=== PATIENT | male | born 1930 | race Caucasian/White ===

== ENCOUNTER 2016-11-01 23:45 | Inpatient (IN) | payer OTHER, MEDICARE ==
[~2016-11-01] VITALS: Ht 167.6 cm; Wt 68.6 kg
[~2016-11-01 23:45] MED LIST: ASPI81TA11 PO; ATOR1TAB18 PO; ENAL20TA PO; METO25TA3 PO; OMEP20CA2; SPIR25TA PO; SULI200T PO
[2016-11-01 23:47] VITALS: BP 167/66; PULSE 98; RESP 20; TEMP 98; O2SAT 92
[2016-11-02] VITALS (20 sets, daily range): BP systolic 103–154; BP diastolic 52–64; PULSE 58–95; RESP 16–18; TEMP 97.5–97.8; O2SAT 93–99
[2016-11-02 00:39] LABS: AUTOMATED NEUTROPHIL # 4.8 TH/MM3 (1.8-7.7); BASOPHIL % 0.3 % (0.0-2.0); EOSINOPHIL # 0.1 TH/MM3 (0-0.4); EOSINOPHIL % 1.3 % (0.0-4.0); HEMATOCRIT 41.5 % (39.0-51.0); HEMO FLAGS DIFF FINAL; LYMPH % 18.9 % (9.0-44.0); LYMPHOCYTE # 1.3 TH/MM3 (1.0-4.8); MEAN CELL VOLUME 87.4 FL (80.0-100.0); MEAN CORPUSCULAR HEMOGLOBIN 29.3 PG (27.0-34.0); MEAN CORPUSCULAR HGB CONC 33.5 % (32.0-36.0); NEUT % 71.5 % (16.0-70.0); PLATELET COUNT 141 TH/MM3 (150-450); RED BLOOD COUNT 4.75 MIL/MM3 (4.50-5.90); RED CELL DISTRIBUTION WIDTH 14.3 % (11.6-17.2); WHITE BLOOD COUNT 6.7 TH/MM3 (4.0-11.0)
[2016-11-02 00:48] LABS: APTT (PATIENT) 27.3 SEC (24.3-30.1); PROTHROMBIN TIME - PATIENT 11.2 SEC (9.8-11.6)
--- NOTE | 2016-11-02 01:15 | PD ---
HPI Chief Complaint: Respiratory Symptoms Time Seen by Provider: 00:24 Travel History International Travel<30 days: No Contact w/Intl Traveler<30days: No Traveled to known affect area: No History of Present Illness HPI 86 years old male complains of shortness of breath. Patient has history of CHF and aortic valve disease. Patient has been seen by factory worker Dr. Lenz and cardiovascular surgeon Dr. Donohue. Patient has cardiac catheter and open heart surgery pending. Patient states that he has increasing shortness breath for the past month. Patient also complains of dyspnea on exertion. Patient has been taking Spironolactone and Lasix. Patient noticed increasing lower extremity swelling recently. Patient denies any chest pain. Patient has history of CAD, hyperlipidemia, hypertension and leaky heart valve. Patient had 2-D echocardiogram done recently which shows systolic CHF with ejection fraction of 30%. PFSH Past Medical History Hx Anticoagulant Therapy: Yes Arthritis: Yes Cardiac Catheterization: Yes Cardiovascular Problems: Yes (STENTS, LEAKY VALVES, CHF ) High Cholesterol: Yes Diminished Hearing: No Hypertension: Yes Tetanus Vaccination: < 5 Years Influenza Vaccination: Yes Past Surgical History Cardiac Surgery: Yes Coronary Stent: Yes (x4) Social History Alcohol Use: Yes (BEER OCC) Tobacco Use: No (quit "50 years ago" stated 10/02/16) Substance Use: No Allergies-Medications (Allergen,Severity, Reaction): Coded Allergies: No Known Allergies (Verified , 10/19/16) Reported Meds & Prescriptions Reported Meds & Active Scripts Active Metoprolol Tartrate 25 Mg Tab 12.5 Mg PO Q12HR Spironolactone 25 Mg Tab 25 Mg PO DAILY Aspirin EC (Aspirin) 81 Mg Tabdr 81 Mg PO DAILY Reported Enalapril (Enalapril Maleate) 20 Mg Tab 20 Mg PO BID Atorvastatin (Atorvastatin Calcium) 80 Mg Tab 80 Mg PO HS Omeprazole 20 Mg Cap DAILY Sulindac 200 Mg Tab 200 Mg PO BID Review of Systems General / Constitutional: No: Fever Eyes: No: Visual changes HENT: No: Headaches Cardiovascular: No: Chest Pain or Discomfort Respiratory: Positive: Shortness of Breath Gastrointestinal: No: Abdominal Pain Genitourinary: No: Dysuria Musculoskeletal: No: Pain Skin: No Rash Neurologic: No: Weakness Psychiatric: No: Depression Endocrine: No: Polydipsia Hematologic/Lymphatic: No: Easy Bruising Physical Exam Narrative GENERAL: Well-nourished, well-developed patient. SKIN: Warm and dry. HEAD: Normocephalic. EYES: No scleral icterus. No injection or drainage. NECK: Supple, trachea midline. No JVD or lymphadenopathy. CARDIOVASCULAR: Regular rate and rhythm without murmurs, gallops, or rubs. RESPIRATORY: Breath sounds equal bilaterally. No accessory muscle use. GASTROINTESTINAL: Abdomen soft, non-tender, nondistended. MUSCULOSKELETAL: No cyanosis, or edema. BACK: Nontender without obvious deformity. No CVA tenderness. Neurologic exam normal. Data Data Last Documented VS Vital Signs Date Time Temp Pulse Resp B/P Pulse Ox O2 Delivery O2 Flow Rate FiO2 11/02/16 00:17 96 Room Air 11/01/16 23:47 98.0 98 20 167/66 Orders Electrocardiogram (11/02/16 00:03) Complete Blood Count With Diff (11/02/16 00:03) Basic Metabolic Panel (Bmp) (11/02/16 00:03) Ckmb (Isoenzyme) Profile (11/02/16 00:03) Troponin I (11/02/16 00:03) Chest, Single Ap (11/02/16 00:03) Iv Access Insert/Monitor (11/02/16 00:03) Ecg Monitoring (11/02/16 00:03) Oxygen Administration (11/02/16 00:03) Act Partial Throm Time (Ptt) (11/02/16 00:10) Prothrombin Time / Inr (Pt) (11/02/16 00:10) B-Type Natriuretic Peptide (11/02/16 00:12) Furosemide Inj (Lasix Inj) (11/02/16 02:00) Labs Laboratory Tests Test 11/02/16 00:20 White Blood Count 6.7 TH/MM3 Red Blood Count 4.75 MIL/MM3 Hemoglobin 13.9 GM/DL Hematocrit 41.5 % Mean Corpuscular Volume 87.4 FL Mean Corpuscular Hemoglobin 29.3 PG Mean Corpuscular Hemoglobin 33.5 % Concent Red Cell Distribution Width 14.3 % Platelet Count 141 TH/MM3 Mean Platelet Volume 10.5 FL Neutrophils (%) (Auto) 71.5 % Lymphocytes (%) (Auto) 18.9 % Monocytes (%) (Auto) 8.0 % Eosinophils (%) (Auto) 1.3 % Basophils (%) (Auto) 0.3 % Neutrophils # (Auto) 4.8 TH/MM3 Lymphocytes # (Auto) 1.3 TH/MM3 Monocytes # (Auto) 0.5 TH/MM3 Eosinophils # (Auto) 0.1 TH/MM3 Basophils # (Auto) 0.0 TH/MM3 CBC Comment DIFF FINAL Differential Comment Prothrombin Time 11.2 SEC Prothromb Time International 1.0 RATIO Ratio Activated Partial 27.3 SEC Thromboplast Time Sodium Level 144 MEQ/L Potassium Level 4.0 MEQ/L Chloride Level 110 MEQ/L Carbon Dioxide Level 25.0 MEQ/L Anion Gap 9 MEQ/L Blood Urea Nitrogen 25 MG/DL Creatinine 1.15 MG/DL Estimat Glomerular Filtration 60 ML/MIN Rate Random Glucose 111 MG/DL Calcium Level 9.3 MG/DL Total Creatine Kinase 55 U/L Troponin I 0.14 NG/ML B-Type Natriuretic Peptide 897 PG/ML MDM Medical Decision Making Medical Screen Exam Complete: Yes Emergency Medical Condition: Yes Interpretation(s) 1:43 AM. EKG shows sinus rhythm with occasional PVCs. Right bundle-branch block. Differential Diagnosis Differential diagnosis including acute exacerbation of CHF, pneumonia, PE, pneumothorax, FL. Narrative Course 1:41 AM. Chest x-ray shows atelectasis. CBC within normal limit. BUN 25. Creatinine 1.15. BNP 897. Troponin 0.14. Diagnosis Primary Impression: Acute exacerbation of CHF (congestive heart failure) Qualified Code: I50.9 - Acute on chronic congestive heart failure, unspecified congestive heart failure type Additional Impression: Elevated troponin Georges Corcoran MD Nov 02, 2016 01:15
--- NOTE | 2016-11-02 01:21 | RADRPT ---
EXAM DATE/TIME: 11/02/2016 00:29 [facility] COMPARISON: CHEST SINGLE AP, October 19, 2016, 10:28. INDICATIONS : Chest pain. Shortness of breath. MEDICAL HISTORY : CHF. SURGICAL HISTORY : None. ENCOUNTER: Initial ACUITY: 1 month PAIN SCORE: 2/10 LOCATION: Bilateral chest FINDINGS: A single view of the chest demonstrates the lungs to be symmetrically aerated without evidence of mas s, infiltrate or effusion. The cardiomediastinal contours are unremarkable. Osseous structures are intact. CONCLUSION: Mild indistinctness of both hemidiaphragms suggesting basilar atelectasis. John Menjivar MD on November 02, 2016 at 1:20 Board Certified Radiologist. This report was verified electronically.
[2016-11-02] MEDS ORDERED: FUROSEMIDE 40 MG/4 ML VIAL IV PUSH ONE (02:00)
[2016-11-02] MEDS ORDERED: ACETAMINOPHEN/HYDROcodone 325 MG/5 MG TAB PO PRN (02:30)
[2016-11-02] MEDS ORDERED: ONDANSETRON HCL 4 MG/2 ML VIAL IVP PRN (02:30)
[2016-11-02] MEDS ORDERED: BISACODYL 10 MG SUPP PR PRN (02:30)
[2016-11-02] MEDS ORDERED: ENOXAPARIN SODIUM 80 MG/0.8 ML SYRINGE SQ ONE (02:30)
[2016-11-02] MEDS ORDERED: MORPHINE SULFATE 4 MG/ML INJ IV PRN (02:30)
[2016-11-02] MEDS ORDERED: SODIUM CHLORIDE 0.9% FLUSH 5 ML FLUSH FLUSH PRN (02:30)
[2016-11-02] MEDS ORDERED: PILL SPLITTER OTHER PRN (02:30)
[2016-11-02] MEDS ORDERED: ACETAMINOPHEN 325 MG TAB PO PRN (02:30)
[2016-11-02] MEDS ORDERED: RESP: ALBUTEROL 2.5 MG/IPRATROPIUM 0.5 MG NEB (PRN) NEB (02:45)
[2016-11-02] MEDS ORDERED: BENZOCAINE-MENTHOL (SUGAR FREE) 15 MG-3.6 MG LOZENGE BUCCAL PRN (03:00)
--- NOTE | 2016-11-02 03:00 | HHI.HP ---
[facility] Service [facility] Primary Care Physician Rafael Rodriguez MD Admission Diagnosis acute exacerbation CHF. Elevated troponin. 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 States symptoms have been ongoing x2 months. Recent admit 10/02-10/04/16 for similar complaints, treated for CHF exacerbation and d/c'd home w/ outpatient follow-up w/ his Chronic Disease Manager, Dr. Lenz. States he is scheduled for Cardiac Cath and repair of Aortic Stenosis on 11/06/16. Denies cough, fever or chills. Denies chest pain. On arrival, BP 167/66, HR 98, O2 sat 92% on RA, Afebrile. CBC at baseline. Thrombocytopenia chronic. Troponin 0.14. BNP 897. CXR w/ basilar atelectasis. Review of Systems Other ROS: 14 point review of systems otherwise negative. 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 No h/o DM or CAD Social History PAST SOCIAL HISTORY: Occasional alcohol. Negative for tobacco or drugs. Physical Exam Vital Signs Vital Signs Date Time Temp Pulse Resp B/P Pulse Ox O2 Delivery O2 Flow Rate FiO2 11/02/16 02:37 74 18 124/63 98 Nasal Cannula 2 11/02/16 01:00 94 Nasal Cannula 2 11/02/16 00:17 96 Room Air 11/01/16 23:47 98.0 98 20 167/66 92 Room Air Physical Exam PE: GENERAL: Pleasant elderly white male in no acute distress appears much younger than his stated age. +laryngitis. HEENT: PERRLA, EOMI. No scleral icterus or conjunctival pallor. No lid lag or facial droop. CARDIOVASCULAR: Regular rate and rhythm. No obvious murmurs to auscultation. No chest tenderness to palpation. RESPIRATORY: No obvious rhonchi or wheezing. Clear to auscultation. Breath sounds equal bilaterally. GASTROINTESTINAL: Abdomen soft, non-tender, nondistended. BS normal. MUSCULOSKELETAL: Extremities without clubbing, cyanosis, or edema. No obvious deformities. NEUROLOGICAL: Awake, alert and oriented x4. No focal neurologic deficits. Moving both upper and lower extremities spontaneously. Laboratory Laboratory Tests Test 11/02/16 00:20 White Blood Count 6.7 Red Blood Count 4.75 Hemoglobin 13.9 Hematocrit 41.5 Mean Corpuscular Volume 87.4 Mean Corpuscular Hemoglobin 29.3 Mean Corpuscular Hemoglobin 33.5 Concent Red Cell Distribution Width 14.3 Platelet Count 141 Mean Platelet Volume 10.5 Neutrophils (%) (Auto) 71.5 Lymphocytes (%) (Auto) 18.9 Monocytes (%) (Auto) 8.0 Eosinophils (%) (Auto) 1.3 Basophils (%) (Auto) 0.3 Neutrophils # (Auto) 4.8 Lymphocytes # (Auto) 1.3 Monocytes # (Auto) 0.5 Eosinophils # (Auto) 0.1 Basophils # (Auto) 0.0 CBC Comment DIFF FINAL Differential Comment Prothrombin Time 11.2 Prothromb Time International 1.0 Ratio Activated Partial 27.3 Thromboplast Time Sodium Level 144 Potassium Level 4.0 Chloride Level 110 Carbon Dioxide Level 25.0 Anion Gap 9 Blood Urea Nitrogen 25 Creatinine 1.15 Estimat Glomerular Filtration 60 Rate Random Glucose 111 Calcium Level 9.3 Total Creatine Kinase 55 Troponin I 0.14 B-Type Natriuretic Peptide 897 Result Diagram: 11/02/160 11/02/16 0020 Assessment and Plan Problem List: (1) JAMES (dyspnea on exertion) ICD Code: R06.09 Status: Acute (2) Aortic stenosis, severe ICD Code: I35.0 Status: Acute (3) NSTEMI (non-ST elevated myocardial infarction) ICD Code: I21.4 Status: Acute (4) CHF (congestive heart failure) ICD Code: I50.9 Status: Acute (5) Laryngitis ICD Code: J04.0 Status: Acute Assessment and Plan A/P: 1. JAMES: Progressive JAMES x2 months, worse in last 1 day. Likely multifactorial secondary to Severe Aortic Stenosis, CHF and Demand Ischemia. Afebrile, no leukocytosis. CXR w/ basilar atelectasis, images reviewed by me. Myles prn. 2. Aortic Stenosis: Severe per Echo 10/03/16. Upcoming surgical intervention on 11/06/16 for repair. Will consult Dr. Lenz with whom he follows. 3. NSTEMI: Trop 0.14, EKG w/ no acute changes. Likely secondary to demand ischemia from severe aortic stenosis in combination w/ CHF. Check serial enzymes. Resume home ASA, Statin, B-Florinda. Start Lovenox. Consult for Dr. Lenz. 4. CHF: Acute on Chronic. Systolic. Echo 10/03/16 w/ EF 30-35%. BNP 897. CXR w/ basilar atelectasis, no significant edema. S/p Lasix 40mg IV in ER. Continue w/ diuresis. Repeat BNP. 5. Laryngitis: Chronic. Ongoing x1 month. Supportive treatment. Cepacol lozenges prn. 6. DVT Prophylaxis: Lovenox 7. Social work for d/c planning as needed. 8. Case discussed w/ ER physician at length. Physician Certification 2 Midnight Certification Type: Admission for Inpatient Services Order for Inpatient Services The services are ordered in accordance with Medicare regulations or non- Medicare payer requirements, as applicable. In the case of services not specified as inpatient-only, they are appropriately provided as inpatient services in accordance with the 2-midnight benchmark. Estimated LOS (days): 2 days is the estimated time the patient will need to remain in the hospital, assuming treatment plan goals are met and no additional complications. Post-Hospital Plan: Not yet determined La Bach MD Nov 02, 2016 03:00
[2016-11-02] MEDS ORDERED: ENALAPRIL MALEATE 10 MG TAB PO SCH (09:00)
[2016-11-02] MEDS ORDERED: METOPROLOL TARTRATE 25 MG TAB PO SCH (09:00)
[2016-11-02] MEDS: SODIUM CHLORIDE 0.9% FLUSH 5 ML FLUSH FLUSH SCH ×2 (09:32→20:39)
[2016-11-02] MEDS: SPIRONOLACTONE 25 MG TAB PO SCH (09:32)
[2016-11-02] MEDS: ASPIRIN EC 81 MG TABEC PO SCH (09:32)
--- NOTE | 2016-11-02 13:37 | EKG ---
Date Performed: 11/02/2016 Time Performed: 00:42:49 PTAGE: 86 years EKG: Sinus rhythm WITH OCCASIONAL VENTRICULAR PREMATURE COMPLEXES WITH OCCASIONAL SUPRAVENTRICULAR PREMATURE COMPLEXES RIGHT BUNDLE BRANCH BLOCK LEFT ANTERIOR FASCICULAR BLOCK POSSIBLE ANTERIOR MYOCARDIAL INFARCTION Sin ce previous tracing, no significant change noted ABNORMAL ECG PREVIOUS TRACING : 10/19/2016 09.39 DOCTOR: Izabel Montes Interpretating Date/Time 11/02/2016 13:32:39
--- NOTE | 2016-11-02 19:44 | HHI.PR ---
Addendum To [facility] Progress Not Reason for addendum: Additonal documentation (patient seen in room; reports better breathing after lasix iv. 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
--- NOTE | 2016-11-02 19:52 | MB ---
cc: SAVANNA LEACH M.D.,ANTHONY Alvarado MD DATE OF CONSULTATION: 11/02/2016. CHIEF COMPLAINT: Shortness of breath. HISTORY OF PRESENT ILLNESS: The patient is an 86-year-old white male well-known to Dr. Lenz. He is known to have severe aortic stenosis and coronary artery disease. This is the patient's second admission for shortness of breath. He has declined cardiac catheterization and aortic valve replacement in the past, although he tells me he is scheduled for both on November 06, [address] Donohue. The patient presents with complaint of progressive shortness of breath yesterday to the point where he was weak and could not walk and could not catch his breath so he presented to the emergency department for further treatment. He denies any chest discomfort yesterday. He does have known stable class II angina pectoris usually with walking briskly. He denies palpitations, syncope or pre-syncope. There is no history of TIA or CVA. At the time I see the patient, he is free of cardiovascular complaints and states his breathing has returned to baseline. PAST MEDICAL HISTORY: His past medical history is significant for: 1. Coronary artery disease. 2. Severe aortic stenosis. 3. Ischemic cardiomyopathy with an ejection fraction noted in the 30% to 35% range by echocardiogram on 10/03/2016. 4. Laryngitis. 5. Hypertension. 6. Hyperlipidemia. ALLERGIES: NO KNOWN DRUG ALLERGIES. PHYSICAL EXAMINATION: GENERAL: The patient is a pleasant alert white male sitting in a chair in no acute distress. VITAL SIGNS: The vital signs reveal a blood pressure of 120/60, pulse of 68, respirations of 18 and the patient is afebrile. HEAD, EYES, EARS, NOSE, THROAT AND NECK: Unremarkable for the patient's age. No jugular venous distention. No bruits appreciated. LUNGS: Clear. CARDIOVASCULAR: Regular rate and rhythm with a 2/6 systolic ejection murmur. ABDOMEN: Abdomen soft without masses, tenderness or organomegaly. Bowel sounds within normal limits. GENITALIA/RECTAL: Deferred. EXTREMITIES: No cyanosis, clubbing or edema. NEUROLOGIC: Grossly intact without focal findings. LABORATORY DATA: CBC is unremarkable. Electrolytes are unremarkable. Random glucose is elevated at 111. Troponins are elevated and somewhat flat at 0.14, 0.10 and 0.12. BNP is elevated at 897. Clotting studies are normal. IMAGING STUDIES: Chest x-ray shows bibasilar atelectasis. EKGS: EKG this morning reveals sinus rhythm with premature atrial and premature ventricular contractions, right bundle-branch block and left anterior fascicular block. No overt ischemia or injury pattern is evident. ASSESSMENT AND PLAN: Essentially the patient presents with severe aortic stenosis associated with congestive heart failure. The patient has responded overnight with supportive therapy with IV Lasix. Will continue diuresis. Further therapy pending per Dr. Leach, and ultimately Dr. Lenz when he returns. I believe the plan is in place for TAVR with Dr. Donohue in the near future. Dictated by Benita Herbert, MSN, LEGAL WRITING PROFESSOR. MD KIRK Cash/AGNES /4:08 PM /7:40 PM
[2016-11-02] MEDS: ATORVASTATIN 80 MG TAB PO SCH (20:39)
[2016-11-02] MEDS: METOPROLOL TARTRATE 25 MG TAB PO SCH (20:40)
[2016-11-02] MEDS: ENALAPRIL MALEATE 10 MG TAB PO SCH (20:40)
--- NOTE | 2016-11-02 20:56 | MB ---
cc: SAVANNA LEACH M.D. DATE OF CONSULTATION: 11/02/2015. ADDENDUM TO THE CARDIOLOGY CONSULT DICTATED BY MAHESH NGUYỄN, MSN, GREASE PACKER. ADDENDUM: The patient is here basically because he was sent to the emergency room by our office for complaints of shortness of breath and dizziness. He has almost no understanding of what his medical problems are. He does indicate he is perfectly willing to undergo cardiac catheterization in the past from the office reflected Dr. Lenz has him scheduled for cardiac catheterization November 07, 2016. He is presently denying any shortness of breath or dizziness. He does have valvular heart disease and on the chart it is listed as moderate aortic insufficiency but we have an echocardiogram from 10/03/2016 that suggests critical aortic stenosis with an ejection fraction of 30% to 35%. He is now amenable to consider intervention on the aortic valve, and with the borderline BNP shortness of breath and the echocardiographic findings from 12/14/2015 it would seem logical that he has had some congestive failure that has been relatively easily managed just by diuresis. The troponins were also elevated, but flat consistent with congestive failure. At this point, we will increase his chronic diuretics a bit. His records reflect that he has been on no Lasix at home per the patient, and his medication reconciliation, but he is supposed to be on Coreg 25 milligrams p.o. twice a day, losartan 100 milligrams p.o. daily and Lasix 20 milligrams p.o. daily along with baby aspirin. His medicine list from home however reflects with very low-dose metoprolol, very high dose enalapril and spirolactone without any diuretics. Obviously the patient is in a state of flux and quite candidly he has no insight into his medical issues. I am going to continue the medical regimen in part that he states he has been taking and increase his diuresis a bit. Dr. Mathew can follow him up tomorrow on the hol and Dr. Lenz will be back Thursday. I suspect at that point his cardiac catheterization can be moved forward, but he really needs input from his regular firmware manager who knows him and understands the desired long-term medical regimen. I think until his situation is clarified he should not be discharged. MD KIRK Cash/AGNES /4:54 PM /8:48 PM
[2016-11-03] VITALS (29 sets, daily range): BP systolic 97–124; BP diastolic 53–73; PULSE 56–84; RESP 16; TEMP 97.4–98.5; O2SAT 94–100
[2016-11-03 07:57] LABS: AUTOMATED NEUTROPHIL # 4.7 TH/MM3 (1.8-7.7); BASOPHIL % 0.5 % (0.0-2.0); EOSINOPHIL # 0.1 TH/MM3 (0-0.4); EOSINOPHIL % 1.3 % (0.0-4.0); HEMATOCRIT 36.1 % (39.0-51.0); HEMO FLAGS DIFF FINAL; LYMPH % 12.8 % (9.0-44.0); LYMPHOCYTE # 0.8 TH/MM3 (1.0-4.8); MEAN CELL VOLUME 86.7 FL (80.0-100.0); MEAN CORPUSCULAR HEMOGLOBIN 29.4 PG (27.0-34.0); MEAN CORPUSCULAR HGB CONC 33.9 % (32.0-36.0); MONO % 8.1 % (0.0-8.0); NEUT % 77.3 % (16.0-70.0); PLATELET COUNT 112 TH/MM3 (150-450); RED BLOOD COUNT 4.16 MIL/MM3 (4.50-5.90); RED CELL DISTRIBUTION WIDTH 14.3 % (11.6-17.2)
[2016-11-03 08:27] LABS: ALT (GPT) 21 U/L (12-78); ANION GAP 10 MEQ/L (5-15); AST (GOT) 14 U/L (15-37); BLOOD UREA NITROGEN 26 MG/DL (7-18); CHLORIDE 108 MEQ/L (98-107); GLOMERULAR FILTRATION RATE 81 ML/MIN (>89); POTASSIUM 3.7 MEQ/L (3.5-5.1); SODIUM (NA) 142 MEQ/L (136-145)
[2016-11-03 08:29] LABS: ALKALINE PHOSPHATASE 78 U/L (45-117); TOTAL BILIRUBIN ADULT 0.9 MG/DL (0.2-1.0)
[2016-11-03] MEDS: FUROSEMIDE 20 MG/2 ML VIAL IV PUSH SCH (09:08)
[2016-11-03] MEDS: METOPROLOL TARTRATE 25 MG TAB PO SCH ×2 (09:08→21:08)
[2016-11-03] MEDS: ASPIRIN EC 81 MG TABEC PO SCH (09:08)
[2016-11-03] MEDS: ENALAPRIL MALEATE 10 MG TAB PO SCH ×2 (09:08→21:08)
[2016-11-03] MEDS: SPIRONOLACTONE 25 MG TAB PO SCH (09:08)
[2016-11-03] MEDS: SODIUM CHLORIDE 0.9% FLUSH 5 ML FLUSH FLUSH SCH ×2 (09:09→21:07)
--- NOTE | 2016-11-03 09:43 | HHI.PR ---
Subjective Remarks Patient seen in follow up for CHF exacerbation. Patient reports also hoarseness over the last month with no evaluation. Cardiology consultation appreciated. We'll continue medical management for now and continue to evaluate for valvular issues Care plan discussed with cardiac nurse Objective Vitals Vital Signs Date Time Temp Pulse Resp B/P Pulse Ox O2 Delivery O2 Flow Rate FiO2 11/03/16 07:42 97.4 77 16 124/73 97 11/03/16 06:00 65 11/03/16 05:00 58 11/03/16 04:00 65 11/03/16 03:30 97.5 62 16 114/65 98 11/03/16 03:00 65 11/03/16 02:00 73 11/03/16 01:00 64 11/03/16 00:00 61 11/02/16 23:56 97.6 70 16 103/52 98 11/02/16 23:00 72 11/02/16 22:00 79 11/02/16 21:00 71 11/02/16 20:00 97.5 71 16 106/58 98 11/02/16 20:00 70 11/02/16 19:00 73 11/02/16 18:01 95 11/02/16 17:00 72 11/02/16 16:00 76 11/02/16 15:15 97.8 80 16 114/56 93 11/02/16 15:00 78 11/02/16 14:00 75 11/02/16 13:00 76 11/02/16 12:00 72 11/02/16 11:01 97.7 82 18 118/63 99 11/02/16 11:01 58 I/O 11/02/16 11/02/16 11/02/16 11/03/16 11/03/16 11/03/16 07:00 15:00 23:00 07:00 15:00 23:00 Intake Total 480 ml 460 ml Output Total 600 ml 500 ml Balance -600 ml -20 ml 460 ml Intake Oral 480 ml 460 ml Output Urine Total 600 ml 500 ml # Voids 1 2 # Bowel Movements 0 1 Result Diagram: 11/03/16 0520 11/03/16 0520 Other Results Echocardiogram 10/2016 shows reduced EF of 30-35%, significantly elevated pulmonary artery pressures 76 mmHg and multiple valvular issues Imaging Last Impressions Chest X-Ray 11/02/16 0003 Signed Impressions: Service Date/Time: Wednesday, November 02, 2016 00:29 - CONCLUSION: Mild indistinctness of both hemidiaphragms suggesting basilar atelectasis. John Menjivar MD Objective Remarks Significant hoarseness GENERAL: This is a well-nourished, well-developed patient, in no apparent distress. CARDIOVASCULAR: Regular rate and rhythm without murmurs, gallops, or rubs. RESPIRATORY: Clear to auscultation. Breath sounds equal bilaterally. No wheezes , rales, or rhonchi. GASTROINTESTINAL: Abdomen soft, non-tender, nondistended. Normal active bowel sounds MUSCULOSKELETAL: Extremities without clubbing, cyanosis, or edema. NEURO: Alert & Oriented x4 to person, place, time, situation. Moves all ext x4 A/P Problem List: (1) JAMES (dyspnea on exertion) ICD Code: R06.09 Status: Acute Plan: Multifactorial to congestive heart failure, history of coronary artery disease and pulmonary artery pressure elevation, likely cor pulmonale We'll continue with supportive care for cardiac status, follow oxygenation (2) CHF (congestive heart failure) ICD Code: I50.9 Status: Acute Plan: Patient with acute exacerbation of systolic and diastolic heart failure Continue diuretic, medical management Cardiology following Improved on IV Lasix (3) Laryngitis ICD Code: J04.0 Status: Acute Plan: This is a 1 over at least a month, CT of the neck pending. Patient's medical history rule out Trina Norton MD Nov 03, 2016 09:43
--- NOTE | 2016-11-03 11:02 | PD.CARD.PN ---
Subjective Subjective Remarks Pt reports JAMES, but feeling better Objective Medications Current Medications Medications (Trade) Dose Ordered Sig/Sonya Route Start Time Stop Time Status Last Admin (NS Flush) 2 ml UNSCH PRN FLUSH 11/02/16 02:30 (NS Flush) 2 ml BID FLUSH 11/02/16 09:00 11/03/16 09:09 (Zofran Inj) 4 mg Q6H PRN IVP 11/02/16 02:30 (Dulcolax Supp) 10 mg DAILY PRN PA 11/02/16 02:30 11/02/16 22:49 (Tylenol) 650 mg Q6H PRN PO 11/02/16 02:30 ([place] 5-325 Mg) 1 tab Q4H PRN PO 11/02/16 02:30 (Morphine Inj) 2 mg Q3H PRN IV 11/02/16 02:30 (Ecotrin Ec) 81 mg DAILY PO 11/02/16 09:00 11/03/16 09:08 (Lipitor) 80 mg HS PO 11/02/16 21:00 11/02/16 20:39 (Aldactone) 25 mg DAILY PO 11/02/16 09:00 11/03/16 09:08 (Pill Splitter) 1 ea UNSCH PRN OTHER 11/02/16 02:30 (Cepacol Extra Chelo (Sugar Free)) 1 lozenge Q2H PRN BUCCAL 11/02/16 03:00 (Vasotec) 10 mg BID PO 11/02/16 21:00 11/03/16 09:08 (Lopressor) 25 mg Q12HR PO 11/02/16 21:00 11/03/16 09:08 (Lasix Inj) 20 mg DAILY IV PUSH 11/03/16 09:00 11/03/16 09:08 Vital Signs / I&O Vital Signs Date Time Temp Pulse Resp B/P Pulse Ox O2 Delivery O2 Flow Rate FiO2 11/03/16 07:42 97.4 77 16 124/73 97 11/03/16 06:00 65 11/03/16 05:00 58 11/03/16 04:00 65 11/03/16 03:30 97.5 62 16 114/65 98 11/03/16 03:00 65 11/03/16 02:00 73 11/03/16 01:00 64 11/03/16 00:00 61 11/02/16 23:56 97.6 70 16 103/52 98 11/02/16 23:00 72 11/02/16 22:00 79 11/02/16 21:00 71 11/02/16 20:00 97.5 71 16 106/58 98 11/02/16 20:00 70 11/02/16 19:00 73 11/02/16 18:01 95 11/02/16 17:00 72 11/02/16 16:00 76 11/02/16 15:15 97.8 80 16 114/56 93 11/02/16 15:00 78 11/02/16 14:00 75 11/02/16 13:00 76 11/02/16 12:00 72 I/O 11/02/16 11/02/16 11/02/16 11/03/16 11/03/16 11/03/16 07:00 15:00 23:00 07:00 15:00 23:00 Intake Total 480 ml 460 ml Output Total 600 ml 500 ml Balance -600 ml -20 ml 460 ml Intake Oral 480 ml 460 ml Output Urine Total 600 ml 500 ml # Voids 1 2 # Bowel Movements 0 1 Physical Exam GENERAL: Well developed, well nourished. No acute distress. HEENT: Jugular venous pressure is normal. CHEST: Lungs clear to auscultation bilaterally. Unlabored respiratory effort. CARDIAC: Regular rate and rhythm, + systolic murmur ABDOMEN: Soft, nontender, no hepatosplenomegaly. Bowel sounds present. EXTREMITIES: No clubbing, cyanosis, tr edema. Laboratory Laboratory Tests Test 11/02/16 11/03/16 12:00 05:20 Troponin I 0.12 NG/ML White Blood Count 6.0 TH/MM3 Red Blood Count 4.16 MIL/MM3 Hemoglobin 12.2 GM/DL Hematocrit 36.1 % Mean Corpuscular Volume 86.7 FL Mean Corpuscular Hemoglobin 29.4 PG Mean Corpuscular Hemoglobin 33.9 % Concent Red Cell Distribution Width 14.3 % Platelet Count 112 TH/MM3 Mean Platelet Volume 10.5 FL Neutrophils (%) (Auto) 77.3 % Lymphocytes (%) (Auto) 12.8 % Monocytes (%) (Auto) 8.1 % Eosinophils (%) (Auto) 1.3 % Basophils (%) (Auto) 0.5 % Neutrophils # (Auto) 4.7 TH/MM3 Lymphocytes # (Auto) 0.8 TH/MM3 Monocytes # (Auto) 0.5 TH/MM3 Eosinophils # (Auto) 0.1 TH/MM3 Basophils # (Auto) 0.0 TH/MM3 CBC Comment DIFF FINAL Differential Comment Sodium Level 142 MEQ/L Potassium Level 3.7 MEQ/L Chloride Level 108 MEQ/L Carbon Dioxide Level 24.0 MEQ/L Anion Gap 10 MEQ/L Blood Urea Nitrogen 26 MG/DL Creatinine 0.89 MG/DL Estimat Glomerular Filtration 81 ML/MIN Rate Random Glucose 80 MG/DL Calcium Level 8.6 MG/DL Total Bilirubin 0.9 MG/DL Aspartate Amino Transf 14 U/L (AST/SGOT) Alanine Aminotransferase 21 U/L (ALT/SGPT) Alkaline Phosphatase 78 U/L B-Type Natriuretic Peptide 779 PG/ML Total Protein 5.5 GM/DL Albumin 2.8 GM/DL Imaging Last 72 hours Impressions Chest X-Ray 11/02/16 0003 Signed Impressions: Service Date/Time: Wednesday, November 02, 2016 00:29 - CONCLUSION: Mild indistinctness of both hemidiaphragms suggesting basilar atelectasis. John Menjivar MD Assessment and Plan Assessment and Plan Severe aortic stenosis- likely will need cath this week CHF- continue to optimize for cath Ischemic cardiomyopathy-EF= 30% to 35% range by echocardiogram on 10/03/2016. CAD- history of CABG Dr Lenz to follow in Renetta Hill MD Nov 03, 2016 11:02
--- NOTE | 2016-11-03 12:36 | RADRPT ---
EXAM DATE/TIME: 11/03/2016 12:04 [facility] COMPARISON: CT THORAX W/O CONTRAST, November 03, 2016, 12:04. INDICATIONS : Hoarseness, evaluate for mass. IV CONTRAST: 97 cc Omnipaque 350 (iohexol) IV RADIATION DOSE: 14.52 CTDIvol (mGy) MEDICAL HISTORY : None SURGICAL HISTORY : None. ENCOUNTER: Initial ACUITY: 1 day PAIN SCALE: 3/10 LOCATION: neck TECHNIQUE: Volumetric scanning of the neck was performed. Using automated exposure control and adjustment of th e mA and/or kV according to patient size, radiation dose was kept as low as reasonably achievable to obtain optimal diagnostic quality images. FINDINGS: NASOPHARYNX: The nasopharyngeal airway has a normal configuration. No mucosal thickening or mass is seen. OROPHARYNX: The intrinsic muscles of the tongue are symmetric. The tonsillar pillars are intact. The prevertebr al soft tissues are not thickened. LARYNX: There is anteromedial displacement of the arytenoid cartilage, and dilatation of the left puriform si nus and bowing of the left vocal cord, findings characteristic of vocal cord paralysis. PARAPHARYNGEAL: The parapharyngeal space is intact. SALIVARY GLANDS: The parotid and submandibular glands are intact. LYMPH NODES: No enlarged or necrotic-appearing nodes. THYROID: Homogeneous enhancement without evidence of nodule. BONES: Unremarkable. CONCLUSION: 1. Left vocal cord paralysis suspected. 2. Large bilateral pleural effusions Rusty Lin MD on November 03, 2016 at 12:32 Board Certified Radiologist. This report was verified electronically.
[2016-11-03] MEDS ORDERED: IOHEXOL 350 MG/ML 10 ML VIAL (for RAD DIAG) IV ONE (12:45)
--- NOTE | 2016-11-03 12:54 | RADRPT ---
EXAM DATE/TIME: 11/03/2016 12:04 [facility] COMPARISON: No previous studies available for comparison. INDICATIONS : Pleural effusions. RADIATION DOSE: 5.10 CTDIvol (mGy) MEDICAL HISTORY : None SURGICAL HISTORY : None. ENCOUNTER: Initial ACUITY: 1 day PAIN SCALE: 0/10 LOCATION: chest TECHNIQUE: Volumetric scanning of the chest was performed. Using automated exposure control and adjustment of t he mA and/or kV according to patient size, radiation dose was kept as low as reasonably achievable to obtain optimal diagnostic quality images. FINDINGS: There are large bilateral pleural effusions, cardiomegaly and dense calcification of the aortic valve and root. Coronary artery calcification is noted and atherosclerotic calcification of aorta. There a re multiple low-density liver lesions the largest characteristic of cysts, several which are to small to characterize though felt to represent cysts. Adrenal glands, spleen and visualized portions of th e pancreas are normal. There is no adenopathy in the mediastinum or hilar regions. There is passive a telectasis of the left lower lobe and right lower lobe with patchy consolidation seen at the bases. O sseous structures are intact. CONCLUSION: Large bilateral effusions and basilar atelectasis and airspace disease. Atherosclerotic disease. Live r cysts. Rusty Lin MD on November 03, 2016 at 12:51 Board Certified Radiologist. This report was verified electronically.
[2016-11-03] MEDS: ATORVASTATIN 80 MG TAB PO SCH (21:07)
[2016-11-04] VITALS (23 sets, daily range): BP systolic 109–121; BP diastolic 51–63; PULSE 54–80; RESP 16–18; TEMP 96.9–97.7; O2SAT 92–100
[2016-11-04] MEDS: ASPIRIN EC 81 MG TABEC PO SCH (08:29)
[2016-11-04] MEDS: SPIRONOLACTONE 25 MG TAB PO SCH (08:29)
[2016-11-04] MEDS: ENALAPRIL MALEATE 10 MG TAB PO SCH (08:29)
[2016-11-04] MEDS: METOPROLOL TARTRATE 25 MG TAB PO SCH ×2 (08:29→20:49)
[2016-11-04] MEDS: SODIUM CHLORIDE 0.9% FLUSH 5 ML FLUSH FLUSH SCH (08:30)
[2016-11-04] MEDS: FUROSEMIDE 20 MG/2 ML VIAL IV PUSH SCH (08:30)
--- NOTE | 2016-11-04 11:17 | PD.CARD.PN ---
Subjective Subjective Remarks No chest pain, no shortness of breath Objective Medications Current Medications Medications (Trade) Dose Ordered Sig/Sonya Route Start Time Stop Time Status Last Admin (Zofran Inj) 4 mg Q6H PRN IVP 11/02/16 02:30 (Dulcolax Supp) 10 mg DAILY PRN [place] 11/02/16 02:30 11/02/16 22:49 (Tylenol) 650 mg Q6H PRN PO 11/02/16 02:30 ([place] 5-325 Mg) 1 tab Q4H PRN PO 11/02/16 02:30 (Morphine Inj) 2 mg Q3H PRN IV 11/02/16 02:30 (Ecotrin Ec) 81 mg DAILY PO 11/02/16 09:00 11/04/16 08:29 (Lipitor) 80 mg HS PO 11/02/16 21:00 11/03/16 21:07 (Aldactone) 25 mg DAILY PO 11/02/16 09:00 11/04/16 08:29 (Pill Splitter) 1 ea UNSCH PRN OTHER 11/02/16 02:30 (Cepacol Extra Chelo (Sugar Free)) 1 lozenge Q2H PRN BUCCAL 11/02/16 03:00 (Vasotec) 10 mg BID PO 11/02/16 21:00 11/04/16 08:29 (Lopressor) 25 mg Q12HR PO 11/02/16 21:00 11/04/16 08:29 (Lasix Inj) 20 mg DAILY IV PUSH 11/03/16 09:00 11/04/16 08:30 Vital Signs / I&O Vital Signs Date Time Temp Pulse Resp B/P Pulse Ox O2 Delivery O2 Flow Rate FiO2 11/04/16 10:00 64 11/04/16 09:00 75 11/04/16 08:00 68 11/04/16 07:00 72 11/04/16 07:00 97.5 80 18 116/63 99 11/04/16 06:00 64 11/04/16 05:00 67 11/04/16 04:00 64 11/04/16 03:45 97.5 79 16 115/62 98 11/04/16 03:00 67 11/04/16 02:00 62 11/04/16 01:00 73 11/04/16 00:00 64 11/03/16 23:30 97.5 63 16 110/53 97 11/03/16 23:00 84 11/03/16 22:00 66 11/03/16 21:00 65 11/03/16 20:00 98.5 70 16 115/66 95 11/03/16 20:00 80 11/03/16 19:00 72 11/03/16 18:00 80 11/03/16 17:00 73 11/03/16 16:00 73 11/03/16 15:30 97.5 63 16 105/64 94 11/03/16 15:10 71 11/03/16 14:07 74 11/03/16 13:16 56 11/03/16 12:05 68 11/03/16 11:36 97.4 64 16 97/60 100 I/O 11/03/16 11/03/16 11/03/16 11/04/16 11/04/16 11/04/16 06:59 14:59 22:59 06:59 14:59 22:59 Intake Total 460 ml 720 ml 240 ml Balance 460 ml 720 ml 240 ml Intake Oral 460 ml 720 ml 240 ml # Voids 2 3 2 # Bowel Movements 1 1 0 Physical Exam GENERAL: NAD SKIN: Warm and dry. HEAD: Atraumatic. Normocephalic. EYES: Pupils equal and round. No scleral icterus. No injection or drainage. ENT: No nasal bleeding or discharge. Mucous membranes pink and moist. NECK: Trachea midline. No JVD. CARDIOVASCULAR: Regular rate and rhythm. 3/6 crescendo-decrescendo to the RSB RESPIRATORY: No accessory muscle use. Decreased breath sounds bilaterally GASTROINTESTINAL: Abdomen soft, non-tender, nondistended. Hepatic and splenic margins not palpable. MUSCULOSKELETAL: Extremities without clubbing, cyanosis, or edema. No obvious deformities. NEUROLOGICAL: Awake and alert. No obvious cranial nerve deficits. Motor grossly within normal limits. Five out of 5 muscle strength in the arms and legs. Normal speech. PSYCHIATRIC: Appropriate mood and affect; insight and judgment normal. Laboratory Laboratory Tests Test 11/02/16 11/02/16 11/02/16 11/03/16 00:20 04:18 12:00 05:20 White Blood Count 6.7 TH/MM3 6.0 TH/MM3 (4.0-11.0) (4.0-11.0) Red Blood Count 4.75 MIL/MM3 4.16 MIL/MM3 (4.50-5.90) (4.50-5.90) Hemoglobin 13.9 GM/DL 12.2 GM/DL (13.0-17.0) (13.0-17.0) Hematocrit 41.5 % 36.1 % (39.0-51.0) (39.0-51.0) Mean Corpuscular Volume 87.4 FL 86.7 FL (80.0-100.0) (80.0-100.0) Mean Corpuscular Hemoglobin 29.3 PG 29.4 PG (27.0-34.0) (27.0-34.0) Mean Corpuscular Hemoglobin 33.5 % 33.9 % Concent (32.0-36.0) (32.0-36.0) Red Cell Distribution Width 14.3 % 14.3 % (11.6-17.2) (11.6-17.2) Platelet Count 141 TH/MM3 112 TH/MM3 (150-450) (150-450) Mean Platelet Volume 10.5 FL 10.5 FL (7.0-11.0) (7.0-11.0) Neutrophils (%) (Auto) 71.5 % 77.3 % (16.0-70.0) (16.0-70.0) Lymphocytes (%) (Auto) 18.9 % 12.8 % (9.0-44.0) (9.0-44.0) Monocytes (%) (Auto) 8.0 % (0.0-8.0) 8.1 % (0.0-8.0) Eosinophils (%) (Auto) 1.3 % (0.0-4.0) 1.3 % (0.0-4.0) Basophils (%) (Auto) 0.3 % (0.0-2.0) 0.5 % (0.0-2.0) Neutrophils # (Auto) 4.8 TH/MM3 4.7 TH/MM3 (1.8-7.7) (1.8-7.7) Lymphocytes # (Auto) 1.3 TH/MM3 0.8 TH/MM3 (1.0-4.8) (1.0-4.8) Monocytes # (Auto) 0.5 TH/MM3 0.5 TH/MM3 (0-0.9) (0-0.9) Eosinophils # (Auto) 0.1 TH/MM3 0.1 TH/MM3 (0-0.4) (0-0.4) Basophils # (Auto) 0.0 TH/MM3 0.0 TH/MM3 (0-0.2) (0-0.2) CBC Comment DIFF FINAL DIFF FINAL Differential Comment Prothrombin Time 11.2 SEC (9.8-11.6) Prothromb Time International 1.0 RATIO Ratio Activated Partial 27.3 SEC Thromboplast Time (24.3-30.1) Sodium Level 144 MEQ/L 142 MEQ/L (136-145) (136-145) Potassium Level 4.0 MEQ/L 3.7 MEQ/L (3.5-5.1) (3.5-5.1) Chloride Level 110 MEQ/L 108 MEQ/L (98-107) (98-107) Carbon Dioxide Level 25.0 MEQ/L 24.0 MEQ/L (21.0-32.0) (21.0-32.0) Anion Gap 9 MEQ/L (5-15) 10 MEQ/L (5-15) Blood Urea Nitrogen 25 MG/DL (7-18) 26 MG/DL (7-18) Creatinine 1.15 MG/DL 0.89 MG/DL (0.60-1.30) (0.60-1.30) Estimat Glomerular Filtration 60 ML/MIN (>89) 81 ML/MIN (>89) Rate Random Glucose 111 MG/DL 80 MG/DL (74-106) (74-106) Calcium Level 9.3 MG/DL 8.6 MG/DL (8.5-10.1) (8.5-10.1) Total Creatine Kinase 55 U/L (39-308) Troponin I 0.14 NG/ML 0.10 NG/ML 0.12 NG/ML (0.02-0.05) (0.02-0.05) (0.02-0.05) B-Type Natriuretic Peptide 897 PG/ML 779 PG/ML (0-100) (0-100) Total Bilirubin 0.9 MG/DL (0.2-1.0) Aspartate Amino Transf 14 U/L (15-37) (AST/SGOT) Alanine Aminotransferase 21 U/L (12-78) (ALT/SGPT) Alkaline Phosphatase 78 U/L (45-117) Total Protein 5.5 GM/DL (6.4-8.2) Albumin 2.8 GM/DL (3.4-5.0) Assessment and Plan Problem List: (1) Aortic stenosis, severe (2) CHF (congestive heart failure) (3) JAMES (dyspnea on exertion) (4) Elevated troponin (5) Acute exacerbation of CHF (congestive heart failure) Assessment and Plan 1) Patient with known CAD, history of 3 stents and severe 2) Will plan on cardiac catheterization today due to severe , elevated troponin and CHF (Planned elective cath by Dr. Lenz on Thursday) 3) CT surgery consult post procedure for severe possible CAD Problem Qualifiers (1) Acute exacerbation of CHF (congestive heart failure): Qualified Code: I50.9 - Acute on chronic congestive heart failure, unspecified congestive heart failure type Robert Boyer DO Nov 04, 2016 11:17
--- NOTE | 2016-11-04 13:01 | HHI.PR ---
Subjective Remarks Follow-up for CHF Patient shortness of breath about the same, if any elevated better today. No wheezing, still hoarse. No chest pain. No overnight events. Good urine output. Objective Vitals Vital Signs Date Time Temp Pulse Resp B/P Pulse Ox O2 Delivery O2 Flow Rate FiO2 11/04/16 12:00 65 11/04/16 11:00 97.4 72 18 115/63 100 11/04/16 11:00 99 Nasal Cannula 2.00 11/04/16 11:00 72 11/04/16 10:00 64 11/04/16 09:00 75 11/04/16 08:00 68 11/04/16 07:00 72 11/04/16 07:00 99 Nasal Cannula 2.00 11/04/16 07:00 97.5 80 18 116/63 99 11/04/16 06:00 64 11/04/16 05:00 67 11/04/16 04:00 64 11/04/16 03:45 97.5 79 16 115/62 98 11/04/16 03:00 67 11/04/16 02:00 62 11/04/16 01:00 73 11/04/16 00:00 64 11/03/16 23:30 97.5 63 16 110/53 97 11/03/16 23:00 84 11/03/16 22:00 66 11/03/16 21:00 65 11/03/16 20:00 98.5 70 16 115/66 95 11/03/16 20:00 80 11/03/16 19:00 72 11/03/16 18:00 80 11/03/16 17:00 73 11/03/16 16:00 73 11/03/16 15:30 97.5 63 16 105/64 94 11/03/16 15:10 71 11/03/16 14:07 74 11/03/16 13:16 56 I/O 11/03/16 11/03/16 11/03/16 11/04/16 11/04/16 11/04/16 07:00 15:00 23:00 07:00 15:00 23:00 Intake Total 460 ml 720 ml 240 ml Balance 460 ml 720 ml 240 ml Intake Oral 460 ml 720 ml 240 ml # Voids 2 3 2 # Bowel Movements 1 1 0 Result Diagram: 11/03/16 0520 11/03/16 05 Objective Remarks GENERAL: This is a well-nourished, well-developed patient, in no apparent distress. Still with significant audible hoarseness. CARDIOVASCULAR: Regular rate and rhythm, positive for murmur. RESPIRATORY: Decreased breath sounds mid to base bilaterally. GASTROINTESTINAL: Abdomen soft, non-tender, nondistended. Normal active bowel sounds MUSCULOSKELETAL: Extremities without clubbing, cyanosis, or edema. NEURO: Alert & Oriented x4 to person, place, time, situation. Moves all ext x4 A/P Problem List: (1) JAMES (dyspnea on exertion) ICD Code: R06.09 Status: Acute (2) CHF (congestive heart failure) ICD Code: I50.9 Status: Acute (3) Laryngitis ICD Code: J04.0 Status: Acute Assessment and Plan This is an 86-year-old male admitted for shortness of breath Shortness of breath secondary to congestive heart failure exacerbation with bilateral pleural effusion-ejection fraction 35%, continue cautious diuresis, continue oxygen support, monitor BMP. Cardiology following. Also severe aortic stenosis, for cardiac catheterization today. Continue Vasotec Severe aortic stenosis-Consult cardiothoracic surgery Non-ST elevated myocardial infarction-patient has a history of coronary artery disease status post stenting in the past, troponin 0.12, cardiology following. For cardiac catheterization today. Continue aspirin, metoprolol and Aldactone. Vocal cord paralysis-patient has hoarseness for more than a month, CT scan of the neck showed possible paralysis of the vocal cords, consult ENT, discussed with Dr. Doss. DVT prophylaxis: Start after cardiac catheterization. Aleshia Lane MD Nov 04, 2016 13:01
[2016-11-04] MEDS ORDERED: HEPARIN-NS/PF INJ 500 ML ONE (13:08)
[2016-11-04] MEDS ORDERED: MIDAZOLAM HCL 2 MG/2 ML VIAL ONE (13:19)
[2016-11-04] MEDS ORDERED: HEPARIN SODIUM - IV 10,000 UNITS/10 ML VIAL ONE (13:54)
[2016-11-04] MEDS ORDERED: ADENOSINE STRESS TEST INJ 90 MG/30 ML VIAL ONE (14:09)
[2016-11-04] MEDS ORDERED: IOHEXOL 350 MG/ML 100 ML BTL (for Cath Lab) OTHER ONE (14:20)
[2016-11-04] MEDS ORDERED: ONDANSETRON HCL 4 MG/2 ML VIAL IV PRN (14:45)
[2016-11-04] MEDS ORDERED: SODIUM CHLOR 0.9% 250 ML INJ 250 ML IV PRN (14:45)
[2016-11-04] MEDS ORDERED: MISC INFORMATION XX ONE (14:45)
[2016-11-04] MEDS ORDERED: ATROPINE SULFATE 1 MG/ML VIAL IV PRN (14:45)
[2016-11-04] MEDS ORDERED: SODIUM CHLORIDE 0.9% FLUSH 5 ML FLUSH IVF PRN (14:45)
--- NOTE | 2016-11-04 14:56 | MB ---
cc: EH ABDI MD,LAKSHMI DUONG,RADHA Varela M.D. DATE OF CONSULTATION: 11/04/2016 REASON FOR CONSULTATION Vocal cord paralysis. HISTORY OF PRESENT ILLNESS Shad Driver is an 86-year-old man who was admitted on through the emergency room for symptoms of shortness of breath and for congestive heart failure. He has a known history of aortic stenosis and had been scheduled for a cardiac catheterization and repair of stenosis for November 06. His symptoms became too great and he presented to the hospital. His evaluation in house included CT scan of the chest and neck. The neck CT was suggestive of paralysis of the left vocal cord. The chest CT showed no evidence of mediastinal adenopathy or hilar adenopathy. The patient reports his voice has been weak and breathy for around 6 weeks and he is not able to produce an effective cough. He denies any symptoms of aspiration. PAST MEDICAL HISTORY 1. Hypertension. 2. Coronary artery disease with stent placement. 3. Congestive heart failure. 4. Hyperlipidemia. 5. Severe aortic stenosis. PAST SURGICAL HISTORY Cardiac stent placement. ALLERGIES No known drug allergies. SOCIAL HISTORY Former smoker, quit many, many years ago. PHYSICAL EXAMINATION On examination he is alert and cooperative. His voice is quite weak. He is able to count to "6" in one breath. ORAL CAVITY: Oral cavity and oropharynx normal. Mucous membranes are rather pale. NECK: No nodes or masses. Larynx and trachea midline. Normal salivary and thyroid glands. EARS: Normal auricles, ear canals and tympanic membranes. Flexible fiberoptic nasopharyngoscopy: Mucous membranes are dry and pale. There are no lesions noted. Hypopharynx and larynx reveals immobile left vocal cord in the lateralized position. Right mobility is normal. There is no neoplastic lesions involving the hypopharynx or larynx. The trachea appears normal. ASSESSMENT Left vocal cord paralysis. PLAN Discussed these findings with the patient and with Dr. Lane. Advised them that the paralysis may well be due to involvement of the left recurrent laryngeal nerve with aortic pathology which is the cause of his shortness of breath and CHF. Since he is not aspirating at this time I would not recommend intervention for the vocal cord paralysis. When his cardiac condition has improved or stabilized, we may consider medialization procedure for the left vocal cord. MD ELPIDIO Thakkar/GEOR[place] /2:25 PM /2:47 PM
--- NOTE | 2016-11-04 17:12 | MB ---
cc: CONNIE FUNG MD DATE OF CONSULTATION 11/04/16 1930 HISTORY OF PRESENT ILLNESS An 86-year-old male with history of severe aortic stenosis, moderate aortic regurgitation, moderate MR and TR. Last echo showed an EF of 30-35% diffuse hypokinesis, aortic valve area of 0.43 with a mean gradient of 33. He presented with symptoms of shortness of breath, CHF ongoing for about six weeks, unable to walk further than 20 steps when he has to stop and catch his breath. He has had some lower extremity edema. He denied having any chest pain or syncope. He has been followed for his heart valve for the last four years. He was apparently scheduled for a heart cath at the end of this week to evaluate his coronary arteries and also the aortic valve area. He also has been complaining of some his voice being weak and breathy like and was evaluated by Dr. Doss for possible paralysis of the left vocal cord that he felt might be associated with the severe aortic stenosis. We were consulted to evaluate for aortic valve replacement. PAST MEDICAL HISTORY 1. Coronary artery disease, 2. Hypertension, 3. Hyperlipidemia, 4. Severe aortic stenosis, 5. Moderate aortic regurgitation, 6. Moderate mitral regurgitation. 7. Tricuspid regurgitation which is moderate. PAST SURGICAL HISTORY Three cardiac stents back in 1999 in [place]. ALLERGIES No known allergies MEDICATIONS home medications 1. Enalapril 20 p.o. b.i.d. 2. Metoprolol 12.5 b.i.d. 3. Atorvastatin 80 p.o. daily. 4. Spironolactone 25 daily. 5. Aspirin 81 daily 6. 200 b.i.d. 7. Omeprazole 20 daily. FAMILY HISTORY Mother from coronary artery disease. Father from complications of emphysema. 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 Remote history of tobacco abuse, quit 50 years ago. Rare alcohol. REVIEW OF SYSTEMS GENERAL: No night sweats, fever, heat and cold intolerance. SKIN: No psoriasis, itching or hives. HEENT: No blurred vision, hearing loss. RESPIRATORY: Positive for shortness of breath. CARDIOVASCULAR: As above in HPI. GASTROINTESTINAL: No diarrhea, vomiting. GENITOURINARY:: No burning, frequency, urgency ICHTHYOLOGIST: No history of TIA, CVA, seizure disorder. PHYSICAL EXAMINATION VITAL SIGNS: Blood pressure 105/60, heart rate 65, room air sat 96%. GENERAL: The patient is awake, alert, no acute distress. HEENT: Head is normocephalic, atraumatic. Pupils are equal and reactive. Oral mucosa pink, moist. NECK: Supple. No JVD. CARDIAC: Heart sounds S1-S2, soft systolic murmur, grade 2-3. LUNGS: Clear to auscultation. No wheezes, rales or rhonchi. ABDOMEN: Soft, nontender. No masses or organomegaly. EXTREMITIES: No cyanosis, clubbing or edema LABORATORY DATA Hemoglobin of 12, hematocrit of 36, white cell count six, platelet count of 112 was 141 on admission. Sodium 142, potassium 3.7, BUN 26 with creatinine of 0.89, troponin 0.12, BNP is 779, INR 1.0. CARDIOLOGY STUDIES EKG showed sinus rhythm with PACs, right bundle branch block. IMPRESSION Patient with admission with CHF exacerbation probably related to the severe aortic stenosis. He has had prior 2-D echo with valve area of 0.43, history of coronary artery disease. prior stent. 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 The diagonal is occluded but small. Cardiac films and echo to be reviewed by Dr. Connie Fung. Evaluation for possible aortic valve replacement versus transaortic valve replacement or TAVR. Decision to be made at this time. We will also obtain a CT of the chest to evaluate the aortic root for calcification. Dictated by ULICES Scott Connie CARLSON/ /3:58 PM /8:30 AM
--- NOTE | 2016-11-04 17:54 | MA ---
cc: ROBERT FELDMAN DO DATE 11/04/2016 PROCEDURE Coronary angiogram, IFR / FFR of proximal LAD. PREPROCEDURE DIAGNOSES Severe aortic stenosis, acute heart failure, history of coronary artery disease, elevated troponin. POSTPROCEDURE DIAGNOSES Severe aortic stenosis, coronary artery disease, acute heart failure. MEDICATIONS USED 1. Versed 0.5 mg. 2. Fentanyl 25 mcg. 3. Heparin 4700 units. 4. Adenosine 588 ml per hour. CONTRAST USED 100 mL. FLUOROSCOPY 6.7 minutes. ESTIMATED BLOOD LOSS 10 mL. PROCEDURE SUMMARY Caden Driver is a pleasant 86-year-old male who comes in with a known history of aortic stenosis. Upon presentation he appeared to be in acute heart failure, [place] [employer] III. He has since been diuresed and it was felt that he was supposed undergo an elective cardiac catheterization at the end of the week, but due to his known severe aortic stenosis, history of coronary artery disease, mildly elevated troponin and severe aortic stenosis that he should undergo cardiac catheterization. Risks, benefits and alternatives were explained to him and his daughter and he consented as such. He was brought to the catheterization lab and prepped and in the usual sterile fashion. He was given 0.5 mg of Versed and 25 mcg of fentanyl at the beginning of the procedure. The right femoral artery was accessed using modified Seldinger technique with a micro puncture needle. A 5-Barbadian sheath was then inserted, aspirated and flushed easily. A JL-4 was then taken to the ascending aorta over a J-wire. On fluoroscopy the patient is noted to have severe calcification along the aortic valve and throughout the ascending aorta. JL-4 was then used to engage the left coronary system which revealed a left main with 20% lesion distally. Proximal LAD 50% with good runoff distally. The second diagonal is a small branch that looks to be subtotally occluded. The circumflex appears to have 30% throughout diffusely. LAD and circumflex appears to provide collateralization to the right coronary artery up until the midportion of the artery. The JL-3.5 was then exchanged for at JR4. The JR-4 was used to engage the right coronary artery which is 100% occluded proximally but does provide right to right collaterals to the distal portions of the right coronary artery. JR-4 was then removed. Because of the intermediate lesion in the proximal LAD and consideration of possible CT surgery for the aortic valve it was felt that the LAD needed to be physiologically tested for stenosis. The JR-4 was then removed. A 6-Barbadian sheath was exchanged for the 5-Barbadian sheath. The patient was given 4700 units of heparin. I attempted to advance an EBU 3.5 up the descending aorta but at the iliac bifurcation did not want to advance due to the wire biasing in the aorta. The FR-4 was then advanced back up into the ascending aorta and a wire exchange was done for an Amplatz super stiff wire. EBU 3.5 was then advanced over the Amplatz wire to the ascending aorta. This was used to engage in the left main. A [employer] FFR wire was then advanced until the pressure sensor was in the left main. The wire was then normalized and then advanced down to the midportion of the LAD. At this point IFR was measured twice revealing 0.87, and 0.88 which are intermediate and require further testing. The patient was started on adenosine and then pressures were recorded for 3 minutes. During this the FFR was noted to be 0.84 being non physiologic for stenosis. The FFR wire was then removed and one shot shows no disturbance of the LAD from wiring. EBU 3.5 was then removed over a J-wire. ACT was drawn before leaving the cardiac catheterization lab. The plan will be for the patient to have his right femoral sheath removed once ACT appropriate. The patient left cardiac catheterization lab stable. IMPRESSION 1. Severe aortic stenosis by echocardiogram. 2. Elevated troponin most likely from severe aortic stenosis and congestive heart failure. 3. Acute heart failure. 4. Coronary artery disease as above. RECOMMENDATIONS 1. Due to Shad's severe aortic stenosis and coronary artery disease as above, we will refer him for a CT surgery for possible AVR plus / minus CABG. 2. We will obtain echo results from our office to further evaluate his overall left ventricular function and other valvopathies. 3. Further recommendations will be made based on hospital course. Thank you for allowing me to see Caden Driver. If there are any questions please do not hesitate to call. Robert Feldman DO VGP/KK /2:35 PM /5:22 PM ALICE
[2016-11-04] MEDS: ATORVASTATIN 80 MG TAB PO SCH (20:49)
[2016-11-04] MEDS: SODIUM CHLORIDE 0.9% FLUSH 5 ML FLUSH IVF SCH (20:56)
[2016-11-05] VITALS (21 sets, daily range): BP systolic 108–118; BP diastolic 53–63; PULSE 53–80; RESP 18; TEMP 97.6–98.5; O2SAT 94–98
[2016-11-05 08:31] LABS: AUTOMATED NEUTROPHIL # 6.1 TH/MM3 (1.8-7.7); BASOPHIL % 0.4 % (0.0-2.0); EOSINOPHIL # 0.1 TH/MM3 (0-0.4); EOSINOPHIL % 0.8 % (0.0-4.0); HEMATOCRIT 41.5 % (39.0-51.0); HEMO FLAGS DIFF FINAL; LYMPH % 15.4 % (9.0-44.0); LYMPHOCYTE # 1.2 TH/MM3 (1.0-4.8); MEAN CELL VOLUME 87.1 FL (80.0-100.0); MEAN CORPUSCULAR HEMOGLOBIN 29.6 PG (27.0-34.0); MONO % 7.4 % (0.0-8.0); PLATELET COUNT 147 TH/MM3 (150-450); RED BLOOD COUNT 4.77 MIL/MM3 (4.50-5.90); RED CELL DISTRIBUTION WIDTH 14.1 % (11.6-17.2)
[2016-11-05] MEDS: SODIUM CHLORIDE 0.9% FLUSH 5 ML FLUSH IVF SCH ×2 (08:45→21:03)
[2016-11-05] MEDS: FUROSEMIDE 20 MG/2 ML VIAL IV PUSH SCH (08:45)
[2016-11-05] MEDS: ASPIRIN EC 81 MG TABEC PO SCH (08:45)
[2016-11-05] MEDS: SPIRONOLACTONE 25 MG TAB PO SCH (08:45)
[2016-11-05] MEDS: METOPROLOL TARTRATE 25 MG TAB PO SCH ×2 (08:45→21:03)
--- NOTE | 2016-11-05 08:48 | PD.CARD.PN ---
Subjective Subjective Remarks No chest pain, decreased shortness of breath Objective Medications Current Medications Medications (Trade) Dose Ordered Sig/Sonya Route Start Time Stop Time Status Last Admin (Dulcolax Supp) 10 mg DAILY PRN MO 11/02/16 02:30 11/02/16 22:49 (Tylenol) 650 mg Q6H PRN PO 11/02/16 02:30 (Clyde 5-325 Mg) 1 tab Q4H PRN PO 11/02/16 02:30 (Morphine Inj) 2 mg Q3H PRN IV 11/02/16 02:30 (Ecotrin Ec) 81 mg DAILY PO 11/02/16 09:00 11/04/16 08:29 (Lipitor) 80 mg HS PO 11/02/16 21:00 11/04/16 20:49 (Aldactone) 25 mg DAILY PO 11/02/16 09:00 11/04/16 08:29 (Pill Splitter) 1 ea UNSCH PRN OTHER 11/02/16 02:30 (Cepacol Extra Chelo (Sugar Free)) 1 lozenge Q2H PRN BUCCAL 11/02/16 03:00 (Lopressor) 25 mg Q12HR PO 11/02/16 21:00 11/04/16 20:49 (Lasix Inj) 20 mg DAILY IV PUSH 11/03/16 09:00 11/04/16 08:30 (NS Flush) 2 ml BID IVF 11/04/16 21:00 11/04/16 20:56 (NS Flush) 2 ml UNSCH PRN IVF 11/04/16 14:45 Atropine Sulfate 0.5 mg 0.5 mg UNSCH PRN IV 11/04/16 14:45 (NS 250 ml Inj) 250 ml @ 500 mls/hr ONCE PRN IV 11/04/16 14:45 11/05/16 14:44 (Zofran Inj) 4 mg Q4H PRN IV 11/04/16 14:45 Vital Signs / I&O Vital Signs Date Time Temp Pulse Resp B/P Pulse Ox O2 Delivery O2 Flow Rate FiO2 11/05/16 07:00 72 11/05/16 07:00 98.5 74 18 114/53 95 11/05/16 06:00 76 11/05/16 05:00 77 11/05/16 04:00 53 11/05/16 03:00 95 Nasal Cannula 2.00 11/05/16 03:00 61 11/05/16 03:00 97.7 61 18 113/63 94 11/05/16 02:00 66 11/05/16 01:00 67 11/05/16 00:00 79 11/04/16 23:00 66 11/04/16 23:00 98 Nasal Cannula 2.00 11/04/16 23:00 97.3 66 16 109/55 98 11/04/16 22:15 67 11/04/16 21:00 77 11/04/16 20:00 69 11/04/16 19:00 96.9 77 16 121/56 96 11/04/16 19:00 96 Room Air 11/04/16 19:00 77 11/04/16 18:00 77 11/04/16 17:00 66 11/04/16 16:00 69 11/04/16 15:00 54 11/04/16 15:00 97.7 58 18 115/51 92 11/04/16 15:00 92 Room Air 11/04/16 12:00 65 11/04/16 11:00 97.4 72 18 115/63 100 11/04/16 11:00 99 Nasal Cannula 2.00 11/04/16 11:00 72 11/04/16 10:00 64 11/04/16 09:00 75 I/O 11/04/16 11/04/16 11/04/16 11/05/16 11/05/16 11/05/16 07:00 15:00 23:00 07:00 15:00 23:00 Intake Total 240 ml 240 ml 720 ml Output Total 600 ml Balance 240 ml 240 ml 120 ml Intake Oral 240 ml 240 ml 720 ml Output Urine Total 600 ml # Voids 2 3 # Bowel Movements 0 0 Physical Exam GENERAL: NAD SKIN: Warm and dry. HEAD: Atraumatic. Normocephalic. EYES: Pupils equal and round. No scleral icterus. No injection or drainage. ENT: No nasal bleeding or discharge. Mucous membranes pink and moist. NECK: Trachea midline. No JVD. CARDIOVASCULAR: Regular rate and rhythm. 3/6 crescendo-decrescendo to the RSB RESPIRATORY: No accessory muscle use. Decreased breath sounds bilaterally GASTROINTESTINAL: Abdomen soft, non-tender, nondistended. Hepatic and splenic margins not palpable. MUSCULOSKELETAL: Extremities without clubbing, cyanosis, or edema. No obvious deformities. NEUROLOGICAL: Awake and alert. No obvious cranial nerve deficits. Motor grossly within normal limits. Five out of 5 muscle strength in the arms and legs. Normal speech. PSYCHIATRIC: Appropriate mood and affect; insight and judgment normal. Laboratory Laboratory Tests Test 11/05/16 07:10 White Blood Count 8.0 TH/MM3 Red Blood Count 4.77 MIL/MM3 Hemoglobin 14.1 GM/DL Hematocrit 41.5 % Mean Corpuscular Volume 87.1 FL Mean Corpuscular Hemoglobin 29.6 PG Mean Corpuscular Hemoglobin 34.0 % Concent Red Cell Distribution Width 14.1 % Platelet Count 147 TH/MM3 Mean Platelet Volume 10.4 FL Neutrophils (%) (Auto) 76.0 % Lymphocytes (%) (Auto) 15.4 % Monocytes (%) (Auto) 7.4 % Eosinophils (%) (Auto) 0.8 % Basophils (%) (Auto) 0.4 % Neutrophils # (Auto) 6.1 TH/MM3 Lymphocytes # (Auto) 1.2 TH/MM3 Monocytes # (Auto) 0.6 TH/MM3 Eosinophils # (Auto) 0.1 TH/MM3 Basophils # (Auto) 0.0 TH/MM3 CBC Comment DIFF FINAL Differential Comment Assessment and Plan Problem List: (1) Aortic stenosis, severe (2) CHF (congestive heart failure) (3) JAMES (dyspnea on exertion) (4) Elevated troponin (5) Acute exacerbation of CHF (congestive heart failure) Assessment and Plan 1) Severe , await CT surgery work up for possible AVR 2) CAD by cath, occluded RCA with right to right and left to right collaterals, sub-total diagonal but small branch 3) Continue ASA/BB/Statin 4) Enalapril held in case of CT surgery Problem Qualifiers (1) Acute exacerbation of CHF (congestive heart failure): Qualified Code: I50.9 - Acute on chronic congestive heart failure, unspecified congestive heart failure type Robert Boyer DO Nov 05, 2016 08:48
[2016-11-05 08:56] LABS: BICARBONATE 27.8 MEQ/L (21.0-32.0); POTASSIUM 3.4 MEQ/L (3.5-5.1)
--- NOTE | 2016-11-05 10:58 | PD.CAR.PN ---
CVT Progress Note Subjective/Hospital Course: 86/ male admitted with dyspnea / SOB with minimal exertion. HX severe was to undergo Heart cath this thursday by Dr Palacios, however became more symptomatic, and was admitted with evidence of CHF/ Underwent Heart cath by Dr Boyer / EF 30-35% ( LM 20%, Prx LAD 50%, Circ 30%, RCA 100% with collaterals we were consulted to eval for AVR PMH, CAD ( stent x 3 ) 1999 in [place], MOD AR, MR, TR, HLP Left vocal cord paralysis, chronic thrombocytopenia 11/[address] Catherine raya of CT chest for final decision on surgery vs transfer for TAVR Objective: GENERAL: SKIN: Warm and dry. HEAD: Normocephalic. EYES: No scleral icterus. No injection or drainage. NECK: Supple, trachea midline. No JVD or lymphadenopathy. CARDIOVASCULAR: 2/6 sm Regular rate and rhythm without murmurs, gallops, or rubs. RESPIRATORY: Breath sounds equal bilaterally. No accessory muscle use. GASTROINTESTINAL: Abdomen soft, non-tender, nondistended. MUSCULOSKELETAL: No cyanosis, or edema. BACK: Nontender without obvious deformity. No CVA tenderness. Vital Signs Date Time Temp Pulse Resp B/P Pulse Ox O2 Delivery O2 Flow Rate FiO2 11/05/16 07:00 72 11/05/16 07:00 96 Room Air 11/05/16 07:00 98.5 74 18 114/53 95 11/05/16 06:00 76 11/05/16 05:00 77 11/05/16 04:00 53 11/05/16 03:00 95 Nasal Cannula 2.00 11/05/16 03:00 61 11/05/16 03:00 97.7 61 18 113/63 94 11/05/16 02:00 66 11/05/16 01:00 67 11/05/16 00:00 79 11/04/16 23:00 66 11/04/16 23:00 98 Nasal Cannula 2.00 11/04/16 23:00 97.3 66 16 109/55 98 11/04/16 22:15 67 11/04/16 21:00 77 11/04/16 20:00 69 11/04/16 19:00 96.9 77 16 121/56 96 11/04/16 19:00 96 Room Air 11/04/16 19:00 77 11/04/16 18:00 77 11/04/16 17:00 66 11/04/16 16:00 69 11/04/16 15:00 54 11/04/16 15:00 97.7 58 18 115/51 92 11/04/16 15:00 92 Room Air 11/04/16 12:00 65 11/04/16 11:00 97.4 72 18 115/63 100 11/04/16 11:00 99 Nasal Cannula 2.00 11/04/16 11:00 72 Labs: Laboratory Tests Test 11/05/16 07:10 White Blood Count 8.0 TH/MM3 (4.0-11.0) Red Blood Count 4.77 MIL/MM3 (4.50-5.90) Hemoglobin 14.1 GM/DL (13.0-17.0) Hematocrit 41.5 % (39.0-51.0) Mean Corpuscular Volume 87.1 FL (80.0-100.0) Mean Corpuscular Hemoglobin 29.6 PG (27.0-34.0) Mean Corpuscular Hemoglobin 34.0 % Concent (32.0-36.0) Red Cell Distribution Width 14.1 % (11.6-17.2) Platelet Count 147 TH/MM3 (150-450) Mean Platelet Volume 10.4 FL (7.0-11.0) Neutrophils (%) (Auto) 76.0 % (16.0-70.0) Lymphocytes (%) (Auto) 15.4 % (9.0-44.0) Monocytes (%) (Auto) 7.4 % (0.0-8.0) Eosinophils (%) (Auto) 0.8 % (0.0-4.0) Basophils (%) (Auto) 0.4 % (0.0-2.0) Neutrophils # (Auto) 6.1 TH/MM3 (1.8-7.7) Lymphocytes # (Auto) 1.2 TH/MM3 (1.0-4.8) Monocytes # (Auto) 0.6 TH/MM3 (0-0.9) Eosinophils # (Auto) 0.1 TH/MM3 (0-0.4) Basophils # (Auto) 0.0 TH/MM3 (0-0.2) CBC Comment DIFF FINAL Differential Comment Sodium Level 142 MEQ/L (136-145) Potassium Level 3.4 MEQ/L (3.5-5.1) Chloride Level 103 MEQ/L (98-107) Carbon Dioxide Level 27.8 MEQ/L (21.0-32.0) Anion Gap 11 MEQ/L (5-15) Blood Urea Nitrogen 18 MG/DL (7-18) Creatinine 0.97 MG/DL (0.60-1.30) Estimat Glomerular Filtration 73 ML/MIN (>89) Rate Random Glucose 86 MG/DL (74-106) Calcium Level 8.9 MG/DL (8.5-10.1) Result Diagram: 11/05/16 0710 11/05/16 0710 (1) Aortic stenosis, severe Plan: await Dr Alexander to eval CT chest and decide on treatment plan (2) CHF (congestive heart failure) Plan: s/p diuresis, on nasal cannula still with some exertional SOB (3) JAMES (dyspnea on exertion) (4) Elevated troponin Cathy Gan Nov 05, 2016 10:58
--- NOTE | 2016-11-05 13:14 | HHI.PR ---
Subjective Remarks Reported positive short of breath and dizziness Objective Vitals Vital Signs Date Time Temp Pulse Resp B/P Pulse Ox O2 Delivery O2 Flow Rate FiO2 11/05/16 13:02 66 11/05/16 12:13 62 11/05/16 11:31 97 Nasal Cannula 2.00 11/05/16 11:31 97.6 74 18 108/62 97 11/05/16 11:09 72 11/05/16 07:00 72 11/05/16 07:00 96 Room Air 11/05/16 07:00 98.5 74 18 114/53 95 11/05/16 06:00 76 11/05/16 05:00 77 11/05/16 04:00 53 11/05/16 03:00 95 Nasal Cannula 2.00 11/05/16 03:00 61 11/05/16 03:00 97.7 61 18 113/63 94 11/05/16 02:00 66 11/05/16 01:00 67 11/05/16 00:00 79 11/04/16 23:00 66 11/04/16 23:00 98 Nasal Cannula 2.00 11/04/16 23:00 97.3 66 16 109/55 98 11/04/16 22:15 67 11/04/16 21:00 77 11/04/16 20:00 69 11/04/16 19:00 96.9 77 16 121/56 96 11/04/16 19:00 96 Room Air 11/04/16 19:00 77 11/04/16 18:00 77 11/04/16 17:00 66 11/04/16 16:00 69 11/04/16 15:00 54 11/04/16 15:00 97.7 58 18 115/51 92 11/04/16 15:00 92 Room Air I/O 11/04/16 11/04/16 11/04/16 11/05/16 11/05/16 11/05/16 06:59 14:59 22:59 06:59 14:59 22:59 Intake Total 240 ml 240 ml 720 ml Output Total 600 ml Balance 240 ml 240 ml 120 ml Intake Oral 240 ml 240 ml 720 ml Output Urine Total 600 ml # Voids 2 3 # Bowel Movements 0 0 Result Diagram: 11/05/16 0710 11/05/16 0710 Objective Remarks GENERAL: This is a well-nourished, well-developed patient, in no apparent distress. SKIN: No rashes, warm and dry HEAD: Atraumatic. Normocephalic. EYES: Pupils equal round and reactive. Extraocular motions intact. No scleral icterus. ENT: Nose without bleeding, or drainage, Airway patent. NECK: Trachea midline. Supple CARDIOVASCULAR: Regular rate and rhythm positive systolic murmur in JVD RESPIRATORY: Fair air entry bilaterally. No wheezes, rales, or rhonchi. GASTROINTESTINAL: Abdomen soft, non-tender, nondistended. Positive bowel sounds MUSCULOSKELETAL: Extremities without clubbing, +1 edema bilaterally. Pedal pulses appreciated NEUROLOGICAL: Awake and alert. Moves all extremity. Normal speech.no focal neurological deficit A/P Problem List: (1) JAMES (dyspnea on exertion) ICD Code: R06.09 Status: Acute (2) CHF (congestive heart failure) ICD Code: I50.9 Status: Acute (3) Laryngitis ICD Code: J04.0 Status: Acute Assessment and Plan This is an 86-year-old male admitted for shortness of breath Shortness of breath secondary to congestive heart failure exacerbation with bilateral pleural effusion-ejection fraction 35%, continue cautious diuresis, continue oxygen support, monitor BMP. Cardiology following. Also severe aortic stenosis, cardiac catheterization CAD by cath, occluded RCA with right to right and left to right collaterals, sub-total diagonal but small branch. Continue Vasotec Severe aortic stenosis-Consult cardiothoracic surgery for possible aVR,Plan: To transfer patient to tertiary Center Non-ST elevated myocardial infarction-patient has a history of coronary artery disease status post stenting in the past, troponin 0.12, cardiology following. For cardiac catheterization today. Continue aspirin, metoprolol and Aldactone. Vocal cord paralysis-patient has hoarseness for more than a month, CT scan of the neck showed possible paralysis of the vocal cords, consult ENT, discussed with Dr. Doss. DVT prophylaxis: Start after cardiac catheterization. Patient transferred to another facility on November 05 11/05/16: [facility] is following for aVR possible transfer to another facility, no LIEN inhibitor in case of upcoming surgery, continue on Lasix 20 twice a day twice a day, BNP is 779 on November 03 Daniel Jaramillo MD Nov 05, 2016 13:14
[2016-11-05] MEDS: ATORVASTATIN 80 MG TAB PO SCH (21:03)
--- NOTE | 2016-11-06 10:26 | HHI.DS ---
Discharge Summary Admission Date Nov 02, 2016 at 02:07 Discharge Date: Nov 05, 2016 Admitting Diagnosis acute exacerbation CHF. Elevated troponin. (1) JAMES (dyspnea on exertion) ICD Code: R06.09 (2) CHF (congestive heart failure) ICD Code: I50.9 (3) Laryngitis ICD Code: J04.0 Procedures See below Brief History - From Admission This is a 86-year-old male with PMH of HTN, CAD s/p Stent, CHF (Echo 10/03/16 w/ EF 30-35%), Severe Aortic Stenosis, Moderate AR/MR/TR and Hyperlipidemia who came into the ER w/ complaints of significant SOB especially w/ exertion. States symptoms have been ongoing x2 months. 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 States he is scheduled for Cardiac Cath and repair of Aortic Stenosis on 11/06/16. Denies cough, fever or chills. Denies chest pain. On arrival, BP 167/66, HR 98, O2 sat 92% on RA, Afebrile. CBC at baseline. Thrombocytopenia chronic. Troponin 0.14. BNP 897. CXR w/ basilar atelectasis. CBC/BMP: 11/05/16 0710 11/05/16 0710 Significant Findings Laboratory Tests Test 11/05/16 07:10 Platelet Count 147 TH/MM3 (150-450) Neutrophils (%) (Auto) 76.0 % (16.0-70.0) Potassium Level 3.4 MEQ/L (3.5-5.1) Estimat Glomerular Filtration 73 ML/MIN (>89) Rate PE at Discharge GENERAL: This is a well-nourished, well-developed patient, in no apparent distress. Still with significant audible hoarseness. CARDIOVASCULAR: Regular rate and rhythm, positive for murmur. RESPIRATORY: Decreased breath sounds mid to base bilaterally. GASTROINTESTINAL: Abdomen soft, non-tender, nondistended. Normal active bowel sounds MUSCULOSKELETAL: Extremities without clubbing, cyanosis, or edema. NEURO: Alert & Oriented x4 to person, place, time, situation. Moves all ext x4 Hospital Course This is an 86-year-old male admitted for shortness of breath Shortness of breath secondary to congestive heart failure exacerbation with bilateral pleural effusion-ejection fraction 35%, continue cautious diuresis, continue oxygen support, monitor BMP. Cardiology following. Also severe aortic stenosis, cardiac catheterization CAD by cath, occluded RCA with right to right and left to right collaterals, sub-total diagonal but small branch. Continue Vasotec Severe aortic stenosis-Consult cardiothoracic surgery for possible aVR,Plan: To transfer patient to tertiary Center Non-ST elevated myocardial infarction-patient has a history of coronary artery disease status post stenting in the past, troponin 0.12, cardiology following. For cardiac catheterization today. Continue aspirin, metoprolol and Aldactone. Vocal cord paralysis-patient has hoarseness for more than a month, CT scan of the neck showed possible paralysis of the vocal cords, consult ENT, discussed with Dr. Doss. DVT prophylaxis: Start after cardiac catheterization. Patient transferred to another facility on November 05 Pt Condition on Discharge: Stable Discharge Disposition: Trnsfr to Other Facility Discharge Time: <= 30 minutes Discharge Instructions DIET: Follow Instructions for: Heart Healthy Diet, Diabetic Diet Daniel Jaramillo MD Nov 06, 2016 10:26
== END 2016-11-05 22:26 | disposition short-term general hospital (02) | DRG 280 ==
LOC: NEPE 23:45 → NEDA 11-02 02:00 → OBSVTOIN 11-02 02:07 → NEDH 11-02 06:44 → HCIN 11-02 10:33
PROVIDERS: ADMIT Hospitalist; ATTEND Hospitalist
PROC: B2111ZZ Fluoroscopy of Multiple Coronary Arteries using Low Osmolar Contrast (ICD-10-PCS; 2016-11-04)
PROC: B2151ZZ Fluoroscopy of Left Heart using Low Osmolar Contrast (ICD-10-PCS; 2016-11-04)
PROC: 4A023N7 Measurement of Cardiac Sampling and Pressure, Left Heart, Percutaneous Approach (ICD-10-PCS; principal; 2016-11-04 12:30)
DX: I35.0 Nonrheumatic aortic (valve) stenosis (principal); I21.4 Non-ST elevation (NSTEMI) myocardial infarction; I50.43 Acute on chronic combined systolic (congestive) and diastolic (congestive) heart failure; D69.6 Thrombocytopenia, unspecified; I25.82 Chronic total occlusion of coronary artery; J38.01 Paralysis of vocal cords and larynx, unilateral; J98.11 Atelectasis; I25.119 Atherosclerotic heart disease of native coronary artery with unspecified angina pectoris; E78.5 Hyperlipidemia, unspecified; I07.1 Rheumatic tricuspid insufficiency; I10 Essential (primary) hypertension; I25.5 Ischemic cardiomyopathy; I34.0 Nonrheumatic mitral (valve) insufficiency; I35.1 Nonrheumatic aortic (valve) insufficiency; J04.0 Acute laryngitis; M19.90 Unspecified osteoarthritis, unspecified site; Z87.891 Personal history of nicotine dependence; Z95.5 Presence of coronary angioplasty implant and graft
CPT/HCPCS: 70491; 71010; 71250; 80048; 80053; 82550; 83880; 84484; 85002; 85025; 85347; 85610; 85730; 93005; 93454; 93571; C1751; C1769; C1893; J0153; J1644; J1650; J1940; J2250; J3010; Q9967

== ENCOUNTER 2016-11-28 10:14 | Emergency (ER) | payer MEDICARE, OTHER ==
[~2016-11-28] VITALS: Ht 167.6 cm; Wt 65.0 kg
[2016-11-28 10:16] VITALS: BP 129/69; PULSE 99; RESP 16; TEMP 97.6; O2SAT 97
--- NOTE | 2016-11-28 11:31 | PD ---
HPI Chief Complaint: Wound/Suture/Staple Re-Check Time Seen by Provider: 11:29 Travel History International Travel<30 days: No Contact w/Intl Traveler<30days: No Traveled to known affect area: No History of Present Illness HPI 86-year-old male with recent history of heart catheterization presents to the ED for evaluation of right groin wound. The patient states that the dressing came off a few days ago and has been weeping clear/white pink fluid since then. He denies pain at the site, warmth at the site, fever or chills. He states that he has follow-up with his storm sash maker on December 11. 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18) Cardiac Surgery: Yes Coronary Stent: Yes (x4) Social History Alcohol Use: Yes (BEER OCC) Tobacco Use: No (quit "50 years ago" stated 10/02/16) Substance Use: No Allergies-Medications (Allergen,Severity, Reaction): Coded Allergies: No Known Allergies (Verified , 11/28/16) Reported Meds & Prescriptions Reported Meds & Active Scripts Active Bactroban Topical (Mupirocin) 2% Oint 1 Appl TOPICAL BID 7 Days Metoprolol Tartrate 25 Mg Tab 12.5 Mg PO Q12HR Spironolactone 25 Mg Tab 25 Mg PO DAILY Aspirin EC (Aspirin) 81 Mg Tabdr 81 Mg PO DAILY Reported Clopidogrel (Clopidogrel Bisulfate) 75 Mg Tab 75 Mg PO DAILY Tamsulosin (Tamsulosin HCl) 0.4 Mg Cap 0.4 Mg PO HS Enalapril (Enalapril Maleate) 20 Mg Tab 20 Mg PO BID Atorvastatin (Atorvastatin Calcium) 80 Mg Tab 80 Mg PO HS Omeprazole 20 Mg Cap DAILY Sulindac 200 Mg Tab 200 Mg PO BID Review of Systems Except as stated in HPI: all other systems reviewed are Neg Physical Exam Narrative GENERAL: Well-nourished, well-developed white male in no acute distress. The patient has a very hoarse voice, secondary to vocal cord paralysis. SKIN: Warm and dry. There is a 1 cm open wound in the right groin. It is surrounded by 2 mm of erythema. No tenderness. No warmth. Small amount of serosanguineous drainage. There is a single suture visible in the deep aspect of the wound. HEAD: Normocephalic. EYES: No scleral icterus. No injection or drainage. NECK: Supple, trachea midline. No JVD or lymphadenopathy. CARDIOVASCULAR: Regular rate and rhythm without murmurs, gallops, or rubs. RESPIRATORY: Breath sounds equal bilaterally. No accessory muscle use. GASTROINTESTINAL: Abdomen soft, non-tender, nondistended. MUSCULOSKELETAL: No cyanosis, or edema. BACK: Nontender without obvious deformity. No CVA tenderness. Data Data Last Documented VS Vital Signs Date Time Temp Pulse Resp B/P Pulse Ox O2 Delivery O2 Flow Rate FiO2 11/28/16 12:05 85 20 130/70 97 11/28/16 10:16 97.6 Orders Wound Culture And Gram Stain (11/28/16 11:39) [facility] Medical Decision Making Medical Screen Exam Complete: Yes Emergency Medical Condition: Yes Differential Diagnosis Wound recheck versus abscess versus cellulitis versus surgical wound infection versus other Narrative Course 86-year-old male with recent history of heart catheterization presents to the ED for evaluation of right groin wound. The patient states that the dressing came off a few days ago and has been weeping clear/white pink fluid since then. He denies pain at the site, warmth at the site, fever or chills. Vitals reviewed. Physical exam reveals a nontoxic-appearing white male in no acute distress. The right groin wound is subcentimeter, 2 mm of erythema surrounding. Small amount of serosanguineous drainage. Wound cultures were obtained. The wound was thoroughly cleaned and a single Steri-Strip was placed. Patient was prescribed Bactroban ointment. He is instructed to apply the medication twice a day, keep the wound clean, dry, covered, follow up with storm sash maker as planned. We discussed reasons to return to the ED. He indicated understanding of instructions. He is amenable to plan of care. He is stable and discharged home. Diagnosis Primary Impression: Encounter for wound re-check Referrals: Primary Care Physician Patient Instructions: Acute Wound Care (ED), General Instructions Additional Instructions: Keep the wound clean, dry and covered. Return for worsening of symptoms including increased redness, warmth, discharge , fever or chills. Apply Bactroban ointment 2 times a day as prescribed. Follow up with your storm sash maker as planned. Return to the ED for any urgent or emergent medical condition. Med/Other Pt SpecificInfo: Prescription(s) given Scripts Mupirocin Topical (Bactroban Topical)2% Oint1 Appl TOPICAL BID 7 Days Ref 0 Prov:Bossman Fabian MD 11/28/16 Disposition: 01 DISCHARGE HOME Condition: Stable Shanti Bush Nov 28, 2016 11:31
[2016-11-28] MEDS ORDERED: BACT2OIN TOPICAL (11:51)
[2016-11-28 12:05] VITALS: BP 130/70
[2016-11-28] MEDS ORDERED: TAMS0.4C4 PO (12:05)
[2016-11-28] MEDS ORDERED: CLOP75TA PO (12:05)
== END 2016-11-28 12:12 | disposition home or self-care (01) ==
LOC: NETRI 10:14
DX: Z08 Encounter for follow-up examination after completed treatment for malignant neoplasm (principal); B96.5 Pseudomonas (aeruginosa) (mallei) (pseudomallei) as the cause of diseases classified elsewhere; B95.61 Methicillin susceptible Staphylococcus aureus infection as the cause of diseases classified elsewhere; E78.00 Pure hypercholesterolemia, unspecified; I10 Essential (primary) hypertension; I50.9 Heart failure, unspecified; Z79.01 Long term (current) use of anticoagulants
CPT/HCPCS: 86403; 87070; 87077; 87186; 87205; 99283

== ENCOUNTER 2016-12-12 11:20 | Observation (INO) | payer OTHER ==
[2016-12-12] VITALS (7 sets, daily range): BP systolic 110–165; BP diastolic 55–76; PULSE 62–88; RESP 16–26; TEMP 97.4–98.1; O2SAT 95–99
[~2016-12-12] VITALS: Ht 165.1 cm; Wt 64.5 kg
[~2016-12-12 11:20] MED LIST changes: +BACT2OIN TOPICAL; +CLOP75TA PO; +TAMS0.4C4 PO
[2016-12-12] MEDS ORDERED: SODIUM CHLORIDE 0.9% FLUSH 5 ML FLUSH IVF PRN (11:45)
--- NOTE | 2016-12-12 11:48 | PD ---
HPI Chief Complaint: Respiratory Symptoms Time Seen by Provider: 11:33 Travel History International Travel<30 days: No Contact w/Intl Traveler<30days: No Traveled to known affect area: No History of Present Illness HPI Patient is an 86-year-old male with history of severe aortic stenosis and coronary disease, presents to emergency room with complaints of onset or shortness of breath which began last night. Patient reports that he has a complicated cardiac history, reports that he is being seen by his insurance application investigator, Dr. Boyer. Patient reports that he had a cardiac catheter on November 03, 2016 which showed severe aortic stenosis with occlusion RCA with right to right and left to right collaterals. Patient was ultimately sent to [facility] in [facility] and had an aortic valve replacement on November 14, 2016. Patient reports that he has been feeling fine after his surgery and felt better as he had been having severe shortness of breath. He did go for his follow-up appointment at [facility] yesterday afternoon and was told that everything was okay. Reports that last night, he began to feel short of breath. Patient reports that he has not been able to sleep with this shortness of breath. Patient reports that he is not having any chest pain at this time. Reports that he feels as if he can't breath. Denies fever/chills. Denies cough/ congestion. 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18) Cardiac Surgery: Yes Coronary Stent: Yes (x4) Other Surgery: Yes Social History Alcohol Use: Yes (BEER OCC) Tobacco Use: No (quit "50 years ago" stated 10/02/16) Substance Use: No Allergies-Medications (Allergen,Severity, Reaction): Coded Allergies: No Known Allergies (Verified , 12/12/16) Reported Meds & Prescriptions Reported Meds & Active Scripts Active Metoprolol Tartrate 25 Mg Tab 12.5 Mg PO Q12HR Spironolactone 25 Mg Tab 25 Mg PO DAILY Aspirin EC (Aspirin) 81 Mg Tabdr 81 Mg PO DAILY Reported Clopidogrel (Clopidogrel Bisulfate) 75 Mg Tab 75 Mg PO DAILY Tamsulosin (Tamsulosin HCl) 0.4 Mg Cap 0.4 Mg PO HS Enalapril (Enalapril Maleate) 20 Mg Tab 20 Mg PO BID Atorvastatin (Atorvastatin Calcium) 80 Mg Tab 80 Mg PO HS Omeprazole 20 Mg Cap DAILY Sulindac 200 Mg Tab 200 Mg PO BID Review of Systems General / Constitutional: No: Fever Eyes: No: Visual changes HENT: No: Headaches Cardiovascular: No: Chest Pain or Discomfort Respiratory: Positive: Shortness of Breath, Orthopnea Gastrointestinal: No: Abdominal Pain Genitourinary: No: Dysuria Musculoskeletal: No: Pain Skin: No Rash Neurologic: No: Weakness Psychiatric: No: Depression Endocrine: No: Polydipsia Hematologic/Lymphatic: No: Easy Bruising Physical Exam Narrative GENERAL: mild distress SKIN: Warm and dry. HEAD: Atraumatic. Normocephalic. ENT: No nasal bleeding or discharge. Mucous membranes pink and moist. NECK: Trachea midline. No JVD. CARDIOVASCULAR: Regular rate and rhythm. +3/6 systolic murmur RESPIRATORY: No accessory muscle use. Clear to auscultation. Breath sounds equal bilaterally. GASTROINTESTINAL: Abdomen soft, non-tender, nondistended. Hepatic and splenic margins not palpable. MUSCULOSKELETAL: No obvious deformities. No clubbing. No cyanosis. No edema. NEUROLOGICAL: Awake and alert. No obvious cranial nerve deficits. Motor grossly within normal limits. Normal speech. PSYCHIATRIC: Appropriate mood and affect; insight and judgment normal. Data Data Last Documented VS Vital Signs Date Time Temp Pulse Resp B/P Pulse Ox O2 Delivery O2 Flow Rate FiO2 12/12/16 11:46 98 12/12/16 11:46 Nasal Cannula 2 12/12/16 11:45 83 26 112/71 12/12/16 11:26 97.4 Orders Electrocardiogram (12/12/16 ) Complete Blood Count With Diff (12/12/16 11:42) Comprehensive Metabolic Panel (12/12/16 11:42) B-Type Natriuretic Peptide (12/12/16 11:42) Act Partial Throm Time (Ptt) (12/12/16 11:42) Prothrombin Time / Inr (Pt) (12/12/16 11:42) Magnesium (Mg) (12/12/16 11:42) Ckmb (Isoenzyme) Profile (12/12/16 11:42) Troponin I (12/12/16 11:42) Urinalysis - C+S If Indicated (12/12/16 11:42) Iv Access Insert/Monitor (12/12/16 11:42) Ecg Monitoring (12/12/16 11:42) Oximetry (12/12/16 11:42) Oxygen Administration (12/12/16 11:42) Chest, Single Ap (12/12/16 11:42) Sodium Chloride 0.9% Flush (Ns Flush) (12/12/16 11:45) Furosemide Inj (Lasix Inj) (12/12/16 12:45) Labs Laboratory Tests Test 12/12/16 11:51 White Blood Count 5.7 TH/MM3 Red Blood Count 4.39 MIL/MM3 Hemoglobin 12.8 GM/DL Hematocrit 38.4 % Mean Corpuscular Volume 87.5 FL Mean Corpuscular Hemoglobin 29.1 PG Mean Corpuscular Hemoglobin 33.2 % Concent Red Cell Distribution Width 15.4 % Platelet Count 117 TH/MM3 Mean Platelet Volume 9.9 FL Neutrophils (%) (Auto) 73.8 % Lymphocytes (%) (Auto) 16.0 % Monocytes (%) (Auto) 8.1 % Eosinophils (%) (Auto) 1.7 % Basophils (%) (Auto) 0.4 % Neutrophils # (Auto) 4.2 TH/MM3 Lymphocytes # (Auto) 0.9 TH/MM3 Monocytes # (Auto) 0.5 TH/MM3 Eosinophils # (Auto) 0.1 TH/MM3 Basophils # (Auto) 0.0 TH/MM3 CBC Comment DIFF FINAL Differential Comment Prothrombin Time 11.4 SEC Prothromb Time International 1.0 RATIO Ratio Activated Partial 25.9 SEC Thromboplast Time Sodium Level 141 MEQ/L Potassium Level 4.1 MEQ/L Chloride Level 109 MEQ/L Carbon Dioxide Level 23.0 MEQ/L Anion Gap 9 MEQ/L Blood Urea Nitrogen 18 MG/DL Creatinine 0.91 MG/DL Estimat Glomerular Filtration 79 ML/MIN Rate Random Glucose 114 MG/DL Calcium Level 9.0 MG/DL Magnesium Level 1.7 MG/DL Total Bilirubin 0.8 MG/DL Aspartate Amino Transf 23 U/L (AST/SGOT) Alanine Aminotransferase 46 U/L (ALT/SGPT) Alkaline Phosphatase 94 U/L Total Creatine Kinase 48 U/L Troponin I 0.15 NG/ML B-Type Natriuretic Peptide 918 PG/ML Total Protein 6.5 GM/DL Albumin 3.2 GM/DL MDM Medical Decision Making Medical Screen Exam Complete: Yes Emergency Medical Condition: Yes Interpretation(s) EKG at 1140: Normal sinus rhythm at 83 bpm, qt/qtc: 405/445, no change from previous ekg Vital Signs Date Time Temp Pulse Resp B/P Pulse Ox O2 Delivery O2 Flow Rate FiO2 12/12/16 11:46 98 12/12/16 11:46 97 Nasal Cannula 2 12/12/16 11:45 83 26 112/71 97 Nasal Cannula 2 12/12/16 11:26 97.4 88 16 165/76 95 Differential Diagnosis ACS, CHF exacerbation, PE, pneumonia Narrative Course 86-year-old male with history of coronary disease and severe aortic stenosis, presents to emergency room with complaints of acute onset shortness of breath last night. Vital signs are stable at this time, patients oxygen saturation is 98 percent on room air. Patient was placed on property assessment monitor upon arrival to emergency room. EKG obtained, labs as well as x-ray of chest ordered. Physician Communication Physician Communication case reviewed with dr almeida who accepts pt to service Diagnosis Primary Impression: CHF exacerbation Qualified Code: I50.9 - Acute on chronic congestive heart failure, unspecified congestive heart failure type Additional Impression: positive troponin Admitting Information Admitting Physician Requests: Observation Alexandria Huerta DO Dec 12, 2016 11:48
[2016-12-12 12:00] LABS: AUTOMATED NEUTROPHIL # 4.2 TH/MM3 (1.8-7.7); BASOPHIL % 0.4 % (0.0-2.0); EOSINOPHIL # 0.1 TH/MM3 (0-0.4); EOSINOPHIL % 1.7 % (0.0-4.0); HEMATOCRIT 38.4 % (39.0-51.0); HEMO FLAGS DIFF FINAL; LYMPHOCYTE # 0.9 TH/MM3 (1.0-4.8); MEAN CELL VOLUME 87.5 FL (80.0-100.0); MEAN CORPUSCULAR HEMOGLOBIN 29.1 PG (27.0-34.0); MEAN CORPUSCULAR HGB CONC 33.2 % (32.0-36.0); MONO % 8.1 % (0.0-8.0); NEUT % 73.8 % (16.0-70.0); PLATELET COUNT 117 TH/MM3 (150-450); RED BLOOD COUNT 4.39 MIL/MM3 (4.50-5.90); RED CELL DISTRIBUTION WIDTH 15.4 % (11.6-17.2); WHITE BLOOD COUNT 5.7 TH/MM3 (4.0-11.0)
[2016-12-12 12:09] LABS: APTT (PATIENT) 25.9 SEC (24.3-30.1); PROTHROMBIN TIME - PATIENT 11.4 SEC (9.8-11.6)
[2016-12-12 12:13] LABS: ALT (GPT) 46 U/L (12-78); ANION GAP 9 MEQ/L (5-15); AST (GOT) 23 U/L (15-37); BLOOD UREA NITROGEN 18 MG/DL (7-18); CHLORIDE 109 MEQ/L (98-107); GLOMERULAR FILTRATION RATE 79 ML/MIN (>89); MAGNESIUM 1.7 MG/DL (1.5-2.5); POTASSIUM 4.1 MEQ/L (3.5-5.1); SODIUM (NA) 141 MEQ/L (136-145)
[2016-12-12 12:16] LABS: ALKALINE PHOSPHATASE 94 U/L (45-117); TOTAL BILIRUBIN ADULT 0.8 MG/DL (0.2-1.0)
[2016-12-12 12:17] LABS: CREATINE KINASE 48 U/L (39-308)
--- NOTE | 2016-12-12 12:33 | RADRPT ---
EXAM DATE/TIME: 12/12/2016 11:50 [facility] COMPARISON: CHEST SINGLE AP, November 02, 2016, 0:29. INDICATIONS : Shortness of breath. MEDICAL HISTORY : None. SURGICAL HISTORY : Atrial valve replacement. Stent placement. ENCOUNTER: Initial ACUITY: 1 day PAIN SCORE: 0/10 LOCATION: Bilateral chest FINDINGS: The cardiac silhouette is enlarged in transverse diameter. There is prominence of the central pulmona ry vasculature with indistinct vascular margins compatible with vascular congestion but no evidence o f overt failure.There is elevation of the right hemidiaphragm. Small bilateral pleural effusions are identified. Prosthetic aortic valve is present CONCLUSION: 1. Cardiomegaly and findings of vascular congestion without overt failure. Ruslan Haque MD on December 12, 2016 at 12:30 Board Certified Radiologist. This report was verified electronically.
[2016-12-12] MEDS ORDERED: FUROSEMIDE 40 MG/4 ML VIAL IV PUSH ONE (12:45)
[2016-12-12] MEDS ORDERED: ASPIRIN 325 MG TAB PO ONE (13:45)
--- NOTE | 2016-12-12 14:41 | HHI.HP ---
[facility] Rafael Rodriguez MD Admission Diagnosis CHF Exacerbation Diagnoses: Chief Complaint: Increase SOB Travel History International Travel<30 Days: No Contact w/Intl Traveler <30 Da: No Traveled to Known Affected Are: No History of Present Illness Patient is a 86-year-old white male with primary medical history of severe aortic stenosis and CAD, HTN, HLD, CHF who came in to the hospital with complaints of increasing shortness of breath that started last night. Previously seen at the hospital last November 03, 2016 for cardiac catheter which showed severe aortic stenosis with occlusion RCA would write the right and left- to-right collaterals done by Dr. Boyer. Patient was sent to [facility] in [facility] for aortic valve replacement that was done 11/14/16. States post surgery he was feeling okay with improved shortness of breath. He had a follow-up appointment yesterday at [place] and was told that everything was okay. States that they did an echocardiogram yesterday but they did not discuss the results with him. Patient reports increasing shortness of breath last night, with diaphoresis on and off, dizziness, without chest pain. States that he is having the symptoms for about 6 months but felt that shortness of breath has increased last night compared to previous. Patient denies chest pain, palpitations, fevers, chills, headaches, cough, congestion. Denies nausea, vomiting, diarrhea. Complaints of burning sensation when urinating. Patient was given Lasix 40 mg IV push. Diuresed about 800 mL. Chest x-ray showed cardiomegaly and findings of vascular congestion without overt failure. Labs reviewed. CBC with mild anemia RBC 4.39, hemoglobin 12.8, hematocrit 38.4 , platelet count 117. BMP showed chloride 109, EGFR 79. BNP 918. First Troponin 0.15. 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 He said that he has not been following up with an ear nose and throat doctor because he doesn't want to do any further intervention until after he is stable from a heart standpoint. He says he always has shortness of breath and is unable to lie flat on his back. He does not believe he has been gaining any weight. He was just at [facility] yesterday and was told that everything was looking good from a cardiac perspective. Review of Systems Except as stated in HPI: all other systems reviewed are Neg (Negative except for what is noted on history of present illness. ) Past Family Social History Past Medical History Severe aortic stenosis - AVR 12/15/16 at [facility] CHF HTN HLD GERD CAD status post stents x3 ? Vocal cord paralysis Past Surgical History Cardiac catheterization 11/03/[address] Boyer AVR at [facility] 12/15/16 - bovine 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18 Reported Medications Metoprolol Tartrate 25 Mg Tab 12.5 Mg PO Q12HR Spironolactone 25 Mg Tab 25 Mg PO DAILY Aspirin EC (Aspirin) 81 Mg Tabdr 81 Mg PO DAILY Clopidogrel (Clopidogrel Bisulfate) 75 Mg Tab 75 Mg PO DAILY Tamsulosin (Tamsulosin HCl) 0.4 Mg Cap 0.4 Mg PO HS Enalapril (Enalapril Maleate) 20 Mg Tab 20 Mg PO BID Atorvastatin (Atorvastatin Calcium) 80 Mg Tab 80 Mg PO HS Omeprazole 20 Mg Cap DAILY Sulindac 200 Mg Tab 200 Mg PO BID Allergies: Coded Allergies: No Known Allergies (Verified , 12/12/16) Active Ordered Medications Current Medications Medications (Trade) Dose Ordered Sig/Sonya Route Start Time Stop Time Status Last Admin (NS Flush) 2 ml UNSCH PRN IVF 12/12/16 11:45 12/12/16 12:47 Social History Reports occasional alcohol use/beer Denies tobacco use, quit 50 years ago from 2016 Denies illicit drug use Physical Exam Vital Signs Vital Signs Date Time Temp Pulse Resp B/P Pulse Ox O2 Delivery O2 Flow Rate FiO2 12/12/16 11:46 98 12/12/16 11:46 97 Nasal Cannula 2 12/12/16 11:45 83 26 112/71 97 Nasal Cannula 2 12/12/16 11:26 97.4 88 16 165/76 95 Physical Exam GENERAL: This is a well-nourished, well-developed patient, in no apparent distress. SKIN: No rashes, ecchymoses or lesions. Cool and dry. HEAD: Atraumatic. Normocephalic. No temporal or scalp tenderness. EYES: Pupils equal round and reactive. Extraocular motions intact. No scleral icterus. No injection or drainage. ENT: Nose without bleeding, purulent drainage or septal hematoma. Throat without erythema, tonsillar hypertrophy or exudate. Uvula midline. Airway patent. NECK: Trachea midline. No JVD or lymphadenopathy. Supple, nontender, no meningeal signs. CARDIOVASCULAR: Regular rate and rhythm without murmurs, gallops, or rubs. RESPIRATORY: Diminished bases, fine crackles bilateral. On 2 L nasal cannula. GASTROINTESTINAL: Abdomen soft, non-tender, nondistended. No hepato-splenomegaly , or palpable masses. No guarding. MUSCULOSKELETAL: Extremities without clubbing, cyanosis, bilateral lower extremity pitting +1 edema. No joint tenderness, effusion, or edema noted. No calf tenderness. Negative Homans sign bilaterally. NEUROLOGICAL: Awake and alert. Oriented 3. Motor and sensory grossly within normal limits. No focal neuro deficit. Faint speech, hoarseness. PSYCH: Mood and affect appropriate. Laboratory Laboratory Tests Test 12/12/16 11:51 White Blood Count 5.7 Red Blood Count 4.39 Hemoglobin 12.8 Hematocrit 38.4 Mean Corpuscular Volume 87.5 Mean Corpuscular Hemoglobin 29.1 Mean Corpuscular Hemoglobin 33.2 Concent Red Cell Distribution Width 15.4 Platelet Count 117 Mean Platelet Volume 9.9 Neutrophils (%) (Auto) 73.8 Lymphocytes (%) (Auto) 16.0 Monocytes (%) (Auto) 8.1 Eosinophils (%) (Auto) 1.7 Basophils (%) (Auto) 0.4 Neutrophils # (Auto) 4.2 Lymphocytes # (Auto) 0.9 Monocytes # (Auto) 0.5 Eosinophils # (Auto) 0.1 Basophils # (Auto) 0.0 CBC Comment DIFF FINAL Differential Comment Prothrombin Time 11.4 Prothromb Time International 1.0 Ratio Activated Partial 25.9 Thromboplast Time Sodium Level 141 Potassium Level 4.1 Chloride Level 109 Carbon Dioxide Level 23.0 Anion Gap 9 Blood Urea Nitrogen 18 Creatinine 0.91 Estimat Glomerular Filtration 79 Rate Random Glucose 114 Calcium Level 9.0 Magnesium Level 1.7 Total Bilirubin 0.8 Aspartate Amino Transf 23 (AST/SGOT) Alanine Aminotransferase 46 (ALT/SGPT) Alkaline Phosphatase 94 Total Creatine Kinase 48 Troponin I 0.15 B-Type Natriuretic Peptide 918 Total Protein 6.5 Albumin 3.2 Result Diagram: 12/12/16 1151 12/12/16 1151 Imaging Last Impressions Chest X-Ray 12/12/16 1142 Signed Impressions: Service Date/Time: Monday, December 12, 2016 11:50 - CONCLUSION: 1. Cardiomegaly and findings of vascular congestion without overt failure. Ruslan Haque MD Assessment and Plan Problem List: (1) Elevated troponin ICD Code: R79.89 Status: Acute (2) S/P aortic valve replacement ICD Code: Z95.2 Status: Acute (3) SOB (shortness of breath) ICD Code: R06.02 Status: Acute (4) Acute exacerbation of CHF (congestive heart failure) ICD Code: I50.9 Status: Acute Assessment and Plan Patient is a 86-year-old white male with primary medical history of severe aortic stenosis and CAD, HTN, HLD, CHF who came in to the hospital with complaints of increasing shortness of breath that started last night. Previously seen at the hospital last November 03, 2016 for cardiac catheter which showed severe aortic stenosis with occlusion RCA would write the right and left- to-right collaterals done by Dr. Boyer. Patient was sent to [facility] in [facility] for aortic valve replacement that was done 11/14/16. Status post aortic valve replacement Acute exacerbation congestive heart failure - BNP 918 - Chest x-ray showed cardiomegaly and findings of vascular congestion without overt failure. - Lasix 40 mg IVP given in the ED. Continue to diurese patient. Continue spironolactone 25 mg, enalapril 20 mg - Continue O2 nasal cannula. - Monitor BMP - Patient has been followed by Dr. Boyer prior to AVR in [facility]. Consult cardiology. The patient has symptoms of CHF. BNP is elevated. Continue diuresis and consult cardiology. Physical therapy consult as well. Continue cardiac regimen. Elevated troponin - EKG reviewed sinus rhythm with right bundle branch block - Follow serial troponin - Reconsult Dr. Boyer Troponin was elevated on last admission. Continue to trend. HTN - continue enalapril 20 mg twice a day, metoprolol 12.5 mg every 12 hours, spironolactone 25 mg - Monitor BP trend CAD, stent placements - cont ASA, Plavix HLD - continue atorvastatin 80 mg BPH - continue tamsulosin 0.4 mg DVT prop SCDs GI prop/GERD pantoprazole 20mg Code Status Full code Discussed Condition With Patient, nursing Attending Statement The exam, history, and the medical decision-making described in the above note were completed with the assistance of the mid-level provider. I reviewed and agree with the findings presented. I attest that I had a [id number] encounter with the patient on the same day, and personally performed and documented my assessment and findings in the medical record. Fan Roger Dec 12, 2016 14:41 Gary Cabrera DO Dec 12, 2016 17:51
[2016-12-12] MEDS ORDERED: SODIUM CHLORIDE 0.9% FLUSH 5 ML FLUSH FLUSH PRN (15:00)
[2016-12-12] MEDS ORDERED: MAGNESIUM HYDROXIDE SUSP 30 ML CUP PO PRN (15:00)
[2016-12-12] MEDS ORDERED: NALOXONE HCL 0.4 MG/ML AMP IV PRN (15:00)
[2016-12-12] MEDS ORDERED: ONDANSETRON HCL 4 MG/2 ML VIAL IVP PRN (15:00)
[2016-12-12] MEDS ORDERED: ACETAMINOPHEN 325 MG TAB PO PRN (15:00)
[2016-12-12 15:08] LABS: BLOOD, URINE NEG (NEG); COMMENT (UR) CULT NOT INDICATED; CULTURE IF INDICATED CULT NOT INDICATED; GLUCOSE,URINE NEG (NEG); KETONE, URINE NEG (NEG); MUCUS URINE FEW /lpf (OCC); NITRITE,URINE NEG (NEG); URINE COLOR YELLOW (YELLW/STRAW)
[2016-12-12] MEDS: FUROSEMIDE 40 MG/4 ML VIAL IV PUSH SCH (18:41)
--- NOTE | 2016-12-12 20:56 | PD.CONS ---
HPI Service Cardiology Consult Requested By ER Reason for Consult HF Primary Care Physician Rafael Rodriguez MD History of Present Illness 86 y/o M with pmhx significant for ischemic cardiomyopathy, aortic stenosis s/p recent TAVR, HTN and HLD thats presented to the ED with complaints of increasing shortness of breath that started last night. States being in his usual state on health until yesterday when all of a sudden he developed shortness of breath. He denies chest pain, palpitations, fevers, chills, headaches, cough, congestion, nausea, vomiting, diarrhea or noncompliance with medications. Home medications list does not mention Lasix or diuretics. In the ER he was treated for HF with Lasix 40 mg IV push with good diuresis. BNP 918. Cardiology has being consulted for HF management. Of note he also reports lack of inactivity since surgery and swelling of the right leg >> than right. Review of Systems Consitutional: DENIES: Fatigue, Fever, Chills, Weight gain, Weight loss Eyes: DENIES: Amaurosis Fugax, Change in vision Respiratory: COMPLAINS OF: See HPI, Shortness of breath, DENIES: Cough, Snoring, Wheezing, Sputum production Cardiovascular: DENIES: See HPI, Chest pain, Palpitations, Syncope, Tachycardia Gastrointestinal: DENIES: Nausea, Vomiting, Change in bowel habits, Reflux, Bloody stools, Melena Genitourinary: DENIES: Urinary incontinence, Difficulty voiding Integumentary: DENIES: Rash Musculoskeletal: DENIES: Joint pain, Muscle pain, Limited range of motion, Back pain Psychiatric: DENIES: Anxiety, Depression, Sleep disturbances Hematologic: DENIES: Bruising tendencies, Bleeding tendencies Endocrine: DENIES: Weight gain, Weight loss, Thyroid disease Past Family Social History Allergies: Coded Allergies: No Known Allergies (Verified , 12/12/16) Past Medical History Severe aortic stenosis s/p TAVR CHF HTN HLD GERD CAD status post stents x3 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 Past Surgical History TAVR 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18 Reported Medications Reported Meds & Active Scripts Active Metoprolol Tartrate 25 Mg Tab 12.5 Mg PO Q12HR Spironolactone 25 Mg Tab 25 Mg PO DAILY Aspirin EC (Aspirin) 81 Mg Tabdr 81 Mg PO DAILY Reported Clopidogrel (Clopidogrel Bisulfate) 75 Mg Tab 75 Mg PO DAILY Tamsulosin (Tamsulosin HCl) 0.4 Mg Cap 0.4 Mg PO HS Enalapril (Enalapril Maleate) 20 Mg Tab 20 Mg PO BID Atorvastatin (Atorvastatin Calcium) 80 Mg Tab 80 Mg PO HS Omeprazole 20 Mg Cap DAILY Sulindac 200 Mg Tab 200 Mg PO BID Active Ordered Medications Current Medications Medications (Trade) Dose Ordered Sig/Sonya Route Start Time Stop Time Status Last Admin (NS Flush) 2 ml UNSCH PRN FLUSH 12/12/16 15:00 (NS Flush) 2 ml BID FLUSH 12/12/16 21:00 (Tylenol) 650 mg Q4H PRN PO 12/12/16 15:00 (Zofran Inj) 4 mg Q6H PRN IVP 12/12/16 15:00 (Milk Of Magnmichelle Liq) 30 ml Q12H PRN PO 12/12/16 15:00 (Narcan Inj) 0.4 mg UNSCH PRN IV 12/12/16 15:00 (Ecotrin Ec) 81 mg DAILY PO 12/13/16 09:00 (Lipitor) 80 mg HS PO 12/12/16 21:00 (Plavix) 75 mg DAILY PO 12/13/16 09:00 (Vasotec) 20 mg BID PO 12/12/16 21:00 (Lopressor) 12.5 mg Q12HR PO 12/12/16 21:00 (Aldactone) 25 mg DAILY PO 12/13/16 09:00 (Flomax) 0.4 mg HS PO 12/12/16 21:00 (Protonix) 20 mg DAILY PO 12/13/16 09:00 (Lasix Inj) 40 mg BID@,18 IV PUSH 12/12/16 18:00 12/12/16 18:41 Family History Noncontributory Social History Denies illicit drug use, alcohol abuse or smoking Physical Exam Vital Signs Vital Signs Date Time Temp Pulse Resp B/P Pulse Ox O2 Delivery O2 Flow Rate FiO2 12/12/16 19:48 98.1 68 20 110/60 96 12/12/16 17:07 97.5 67 19 116/55 99 12/12/16 16:00 67 18 132/56 96 Nasal Cannula 2 12/12/16 11:46 98 12/12/16 11:46 97 Nasal Cannula 2 12/12/16 11:45 83 26 112/71 97 Nasal Cannula 2 12/12/16 11:26 97.4 88 16 165/76 95 Physical Exam GENERAL: Well-nourished, well-developed patient. SKIN: Warm and dry. HEAD: Normocephalic. EYES: No scleral icterus. No injection or drainage. NECK: Supple, trachea midline. No JVD or lymphadenopathy. CARDIOVASCULAR: Regular rate and rhythm 2/6 SABINA NO gallops, or rubs. RESPIRATORY: Breath sounds equal bilaterally. + rales No accessory muscle use. GASTROINTESTINAL: Abdomen soft, non-tender, nondistended. EXTREMITIES: No cyanosis, +2 edema. NEUROLOGICAL: Awake, alert, and oriented x 3. Non-focal. Laboratory Laboratory Tests Test 12/12/16 12/12/16 12/12/16 11:51 14:21 17:53 White Blood Count 5.7 Red Blood Count 4.39 Hemoglobin 12.8 Hematocrit 38.4 Mean Corpuscular Volume 87.5 Mean Corpuscular Hemoglobin 29.1 Mean Corpuscular Hemoglobin 33.2 Concent Red Cell Distribution Width 15.4 Platelet Count 117 Mean Platelet Volume 9.9 Neutrophils (%) (Auto) 73.8 Lymphocytes (%) (Auto) 16.0 Monocytes (%) (Auto) 8.1 Eosinophils (%) (Auto) 1.7 Basophils (%) (Auto) 0.4 Neutrophils # (Auto) 4.2 Lymphocytes # (Auto) 0.9 Monocytes # (Auto) 0.5 Eosinophils # (Auto) 0.1 Basophils # (Auto) 0.0 CBC Comment DIFF FINAL Differential Comment Prothrombin Time 11.4 Prothromb Time International 1.0 Ratio Activated Partial 25.9 Thromboplast Time Sodium Level 141 Potassium Level 4.1 Chloride Level 109 Carbon Dioxide Level 23.0 Anion Gap 9 Blood Urea Nitrogen 18 Creatinine 0.91 Estimat Glomerular Filtration 79 Rate Random Glucose 114 Calcium Level 9.0 Magnesium Level 1.7 Total Bilirubin 0.8 Aspartate Amino Transf 23 (AST/SGOT) Alanine Aminotransferase 46 (ALT/SGPT) Alkaline Phosphatase 94 Total Creatine Kinase 48 Troponin I 0.15 0.19 B-Type Natriuretic Peptide 918 Total Protein 6.5 Albumin 3.2 Urine Color YELLOW Urine Turbidity CLEAR Urine pH 6.0 Urine Specific [place] 1.007 Urine Protein NEG Urine Glucose (UA) NEG Urine Ketones NEG Urine Occult Blood NEG Urine Nitrite NEG Urine Bilirubin NEG Urine Urobilinogen LESS THAN 2.0 Urine Leukocyte Esterase NEG Urine WBC LESS THAN 1 Urine Mucus FEW Microscopic Urinalysis Comment CULT NOT INDICATED Result Diagram: 12/12/16 1151 12/12/16 1151 Imaging Last Impressions Chest X-Ray 12/12/16 1142 Signed Impressions: Service Date/Time: Monday, December 12, 2016 11:50 - CONCLUSION: 1. Cardiomegaly and findings of vascular congestion without overt failure. Ruslan Haque MD Assessment and Plan Problem List: (1) Acute exacerbation of CHF (congestive heart failure) Assessment and Plan: 86 y/o M with known CAD, LV dysfunction and recent TAVR admitted with acute onset of SOB suggestive of acute on chronic combined HF. Good response with IV Lasix. Although SOB might be HF and/or valve dysfunction, PE is also in the differential diagnosis given patient inactivity in the past month. Regarding mild troponin's elevation this is most likely due HF. Recommendations: 2Dechocardiogram to assess Ao Valve/?paravalvular leaks Chest CTA to r/o PE Continue IV Lasix for diuresis Strict I/O Daily weight Incentive spirometry Encourage early ambulation Get [facility] medical records from previous admission Thank you for the opportunity to take part in the care of this patient Further therapy to be determined (2) Ischemic cardiomyopathy (3) S/P aortic valve replacement Problem Qualifiers (1) Acute exacerbation of CHF (congestive heart failure): Qualified Code: I50.43 - Acute on chronic combined systolic and diastolic congestive heart failure Shane Grajeda MD Dec 12, 2016 20:56
[2016-12-12] MEDS: ENALAPRIL MALEATE 10 MG TAB PO SCH (21:00)
[2016-12-12] MEDS: METOPROLOL TARTRATE 25 MG TAB PO SCH (22:00)
[2016-12-12] MEDS: ATORVASTATIN 80 MG TAB PO SCH (22:00)
[2016-12-12] MEDS: TAMSULOSIN HCL 0.4 MG CAP PO SCH (22:00)
[2016-12-12] MEDS: SODIUM CHLORIDE 0.9% FLUSH 5 ML FLUSH FLUSH SCH (22:00)
[2016-12-13] VITALS (8 sets, daily range): BP systolic 101–118; BP diastolic 55–66; PULSE 63–90; RESP 18–19; TEMP 97.7–98.2; O2SAT 95–98
[2016-12-13 07:44] LABS: AUTOMATED NEUTROPHIL # 3.1 TH/MM3 (1.8-7.7); BASOPHIL % 0.6 % (0.0-2.0); EOSINOPHIL # 0.1 TH/MM3 (0-0.4); EOSINOPHIL % 2.1 % (0.0-4.0); HEMATOCRIT 34.9 % (39.0-51.0); LYMPH % 16.3 % (9.0-44.0); LYMPHOCYTE # 0.7 TH/MM3 (1.0-4.8); MEAN CELL VOLUME 85.5 FL (80.0-100.0); MEAN CORPUSCULAR HEMOGLOBIN 28.8 PG (27.0-34.0); MEAN CORPUSCULAR HGB CONC 33.7 % (32.0-36.0); MONO % 9.9 % (0.0-8.0); NEUT % 71.1 % (16.0-70.0); PLATELET COUNT 93 TH/MM3 (150-450); RED BLOOD COUNT 4.08 MIL/MM3 (4.50-5.90); RED CELL DISTRIBUTION WIDTH 15.9 % (11.6-17.2); WHITE BLOOD COUNT 4.3 TH/MM3 (4.0-11.0)
[2016-12-13 07:50] LABS: HEMO FLAGS DIFF FINAL
[2016-12-13 08:02] LABS: ALKALINE PHOSPHATASE 86 U/L (45-117); ALT (GPT) 36 U/L (12-78); AST (GOT) 21 U/L (15-37); BICARBONATE 28.1 MEQ/L (21.0-32.0); BLOOD UREA NITROGEN 16 MG/DL (7-18); CHLORIDE 106 MEQ/L (98-107); GLOMERULAR FILTRATION RATE 88 ML/MIN (>89); POTASSIUM 3.2 MEQ/L (3.5-5.1); SODIUM (NA) 143 MEQ/L (136-145); TOTAL BILIRUBIN ADULT 1.1 MG/DL (0.2-1.0)
[2016-12-13 08:03] LABS: ANION GAP 9 MEQ/L (5-15)
--- NOTE | 2016-12-13 08:17 | PD.CARD.PN ---
Subjective Subjective Remarks "I feel better" No SOB overnight Objective Medications Current Medications Medications (Trade) Dose Ordered Sig/Sonya Route Start Time Stop Time Status Last Admin (NS Flush) 2 ml UNSCH PRN FLUSH 12/12/16 15:00 (NS Flush) 2 ml BID FLUSH 12/12/16 21:00 12/12/16 22:00 (Tylenol) 650 mg Q4H PRN PO 12/12/16 15:00 (Zofran Inj) 4 mg Q6H PRN IVP 12/12/16 15:00 (Milk Of Magnesia Liq) 30 ml Q12H PRN PO 12/12/16 15:00 (Narcan Inj) 0.4 mg UNSCH PRN IV 12/12/16 15:00 (Ecotrin Ec) 81 mg DAILY PO 12/13/16 09:00 (Lipitor) 80 mg HS PO 12/12/16 21:00 12/12/16 22:00 (Plavix) 75 mg DAILY PO 12/13/16 09:00 (Vasotec) 20 mg BID PO 12/12/16 21:00 (Lopressor) 12.5 mg Q12HR PO 12/12/16 21:00 12/12/16 22:00 (Aldactone) 25 mg DAILY PO 12/13/16 09:00 (Flomax) 0.4 mg HS PO 12/12/16 21:00 12/12/16 22:00 (Protonix) 20 mg DAILY PO 12/13/16 09:00 (Lasix Inj) 40 mg BID@09,18 IV PUSH 12/12/16 18:00 12/12/16 18:41 Vital Signs / I&O Vital Signs Date Time Temp Pulse Resp B/P Pulse Ox O2 Delivery O2 Flow Rate FiO2 12/13/16 08:08 97.8 64 19 118/57 95 12/13/16 05:34 98.0 63 19 112/60 12/13/16 01:18 98.0 65 19 110/55 97 12/12/16 20:00 62 12/12/16 19:48 98.1 68 20 110/60 96 12/12/16 17:07 97.5 67 19 116/55 99 12/12/16 16:00 67 18 132/56 96 Nasal Cannula 2 12/12/16 11:46 98 12/12/16 11:46 97 Nasal Cannula 2 12/12/16 11:45 83 26 112/71 97 Nasal Cannula 2 12/12/16 11:26 97.4 88 16 165/76 95 I/O 12/12/16 12/12/16 12/12/16 12/13/16 12/13/16 12/13/16 07:00 15:00 23:00 07:00 15:00 23:00 Output Total 400 ml Balance -400 ml Output Urine Total 400 ml Physical Exam GENERAL: Well-nourished, well-developed patient. SKIN: Warm and dry. HEAD: Normocephalic. EYES: No scleral icterus. No injection or drainage. NECK: Supple, trachea midline. No JVD or lymphadenopathy. CARDIOVASCULAR: Regular rate and rhythm 2/6 SABINA murmur, gallops, or rubs. RESPIRATORY: Breath sounds equal bilaterally. No accessory muscle use. GASTROINTESTINAL: Abdomen soft, non-tender, nondistended. EXTREMITIES: No cyanosis, or edema. NEUROLOGICAL: Awake, alert, and oriented x 3. Non-focal. Laboratory Laboratory Tests Test 12/12/16 12/12/16 12/12/16 12/12/16 11:51 14:21 17:53 23:20 White Blood Count 5.7 TH/MM3 Red Blood Count 4.39 MIL/MM3 Hemoglobin 12.8 GM/DL Hematocrit 38.4 % Mean Corpuscular Volume 87.5 FL Mean Corpuscular Hemoglobin 29.1 PG Mean Corpuscular Hemoglobin 33.2 % Concent Red Cell Distribution Width 15.4 % Platelet Count 117 TH/MM3 Mean Platelet Volume 9.9 FL Neutrophils (%) (Auto) 73.8 % Lymphocytes (%) (Auto) 16.0 % Monocytes (%) (Auto) 8.1 % Eosinophils (%) (Auto) 1.7 % Basophils (%) (Auto) 0.4 % Neutrophils # (Auto) 4.2 TH/MM3 Lymphocytes # (Auto) 0.9 TH/MM3 Monocytes # (Auto) 0.5 TH/MM3 Eosinophils # (Auto) 0.1 TH/MM3 Basophils # (Auto) 0.0 TH/MM3 CBC Comment DIFF FINAL Differential Comment Prothrombin Time 11.4 SEC Prothromb Time International 1.0 RATIO Ratio Activated Partial 25.9 SEC Thromboplast Time Sodium Level 141 MEQ/L Potassium Level 4.1 MEQ/L Chloride Level 109 MEQ/L Carbon Dioxide Level 23.0 MEQ/L Anion Gap 9 MEQ/L Blood Urea Nitrogen 18 MG/DL Creatinine 0.91 MG/DL Estimat Glomerular Filtration 79 ML/MIN Rate Random Glucose 114 MG/DL Calcium Level 9.0 MG/DL Magnesium Level 1.7 MG/DL Total Bilirubin 0.8 MG/DL Aspartate Amino Transf 23 U/L (AST/SGOT) Alanine Aminotransferase 46 U/L (ALT/SGPT) Alkaline Phosphatase 94 U/L Total Creatine Kinase 48 U/L Troponin I 0.15 NG/ML 0.19 NG/ML 0.17 NG/ML B-Type Natriuretic Peptide 918 PG/ML Total Protein 6.5 GM/DL Albumin 3.2 GM/DL Urine Color YELLOW Urine Turbidity CLEAR Urine pH 6.0 Urine Specific [place] 1.007 Urine Protein NEG mg/dL Urine Glucose (UA) NEG mg/dL Urine Ketones NEG mg/dL Urine Occult Blood NEG Urine Nitrite NEG Urine Bilirubin NEG Urine Urobilinogen LESS THAN 2.0 MG/DL Urine Leukocyte Esterase NEG Urine WBC LESS THAN 1 /hpf Urine Mucus FEW /lpf Microscopic Urinalysis Comment CULT NOT INDICATED Test 12/13/16 06:59 White Blood Count 4.3 TH/MM3 Red Blood Count 4.08 MIL/MM3 Hemoglobin 11.8 GM/DL Hematocrit 34.9 % Mean Corpuscular Volume 85.5 FL Mean Corpuscular Hemoglobin 28.8 PG Mean Corpuscular Hemoglobin 33.7 % Concent Red Cell Distribution Width 15.9 % Platelet Count 93 TH/MM3 Mean Platelet Volume 9.1 FL Neutrophils (%) (Auto) 71.1 % Lymphocytes (%) (Auto) 16.3 % Monocytes (%) (Auto) 9.9 % Eosinophils (%) (Auto) 2.1 % Basophils (%) (Auto) 0.6 % Neutrophils # (Auto) 3.1 TH/MM3 Lymphocytes # (Auto) 0.7 TH/MM3 Monocytes # (Auto) 0.4 TH/MM3 Eosinophils # (Auto) 0.1 TH/MM3 Basophils # (Auto) 0.0 TH/MM3 CBC Comment DIFF FINAL Differential Comment Sodium Level 143 MEQ/L Potassium Level 3.2 MEQ/L Chloride Level 106 MEQ/L Carbon Dioxide Level 28.1 MEQ/L Anion Gap 9 MEQ/L Blood Urea Nitrogen 16 MG/DL Creatinine 0.83 MG/DL Estimat Glomerular Filtration 88 ML/MIN Rate Random Glucose 87 MG/DL Calcium Level 8.6 MG/DL Total Bilirubin 1.1 MG/DL Aspartate Amino Transf 21 U/L (AST/SGOT) Alanine Aminotransferase 36 U/L (ALT/SGPT) Alkaline Phosphatase 86 U/L Total Protein 5.7 GM/DL Albumin 2.9 GM/DL Imaging Last Impressions Chest X-Ray 12/12/16 1142 Signed Impressions: Service Date/Time: Monday, December 12, 2016 11:50 - CONCLUSION: 1. Cardiomegaly and findings of vascular congestion without overt failure. Ruslan Haque MD Assessment and Plan Problem List: (1) Acute exacerbation of CHF (congestive heart failure) Assessment and Plan: Cont Diuresis Consider CTA to r/o PE 2Decho ordered waiting results (2) Ischemic cardiomyopathy (3) S/P aortic valve replacement Problem Qualifiers (1) Acute exacerbation of CHF (congestive heart failure): Qualified Code: I50.43 - Acute on chronic combined systolic and diastolic congestive heart failure Shane Grajeda MD Dec 13, 2016 08:17
[2016-12-13] MEDS: FUROSEMIDE 40 MG/4 ML VIAL IV PUSH SCH ×2 (08:41→17:50)
[2016-12-13] MEDS: ASPIRIN EC 81 MG TABEC PO SCH (08:41)
[2016-12-13] MEDS: SPIRONOLACTONE 25 MG TAB PO SCH (08:41)
[2016-12-13] MEDS: SODIUM CHLORIDE 0.9% FLUSH 5 ML FLUSH FLUSH SCH ×2 (08:41→20:42)
[2016-12-13] MEDS: PANTOPRAZOLE SOD 20 MG DELAYED RELEASE TAB PO SCH (08:42)
[2016-12-13] MEDS: CLOPIDOGREL 75 MG TAB PO SCH (08:42)
[2016-12-13] MEDS: METOPROLOL TARTRATE 25 MG TAB PO SCH ×2 (08:42→20:42)
[2016-12-13] MEDS: ENALAPRIL MALEATE 10 MG TAB PO SCH ×2 (09:00→20:43)
--- NOTE | 2016-12-13 12:58 | EKG ---
Date Performed: 12/12/2016 Time Performed: 11:40:42 PTAGE: 86 years EKG: Sinus rhythm WITH OCCASIONAL PVC POSSIBLE LEFT ATRIAL ENLARGEMENT RIGHT BUNDLE BRANCH BLOCK LEFT ANTERIOR FASCICU LAR BLOCK ABNORMAL ECG PREVIOUS TRACING : 11/02/2016 00.42 DOCTOR: Ashish Lenz Interpretating Date/Time 12/13/2016 12:58:00
--- NOTE | 2016-12-13 16:16 | EC ---
Study Study Date:12/13/2016 STUDY CONCLUSIONS SUMMARY - Left ventricle: The cavity size was mildly dilated. Wall thickness was normal. Systolic function was severely reduced. The estimated ejection fraction was in the range of 20% to 25%. Diffuse hypokinesis. Doppler parameters are consistent with abnormal left ventricular relaxation (grade 1 diastolic dysfunction). - Aortic valve: No regurgitation. Valve area: 1cm^2(VTI). Valve area: 0.88cm^2 (Vmax). - Mitral valve: Mild to moderate regurgitation. - Left atrium: The atrium was mildly dilated. - Tricuspid valve: Mild regurgitation. - Pulmonic valve: Mild regurgitation. - Pulmonary arteries: Systolic pressure was moderately increased. PA peak pressure: 59mm Hg (S). - Pericardium, extracardiac: There was a left pleural effusion. If LV function is below 40, please consider prescribing an ACEI or ARB or document rationale for non-use. PROCEDURE DATA STUDY STATUS: Elective. Procedure: Transthoracic echocardiography. Image quality was good. Scanning was performed from the parasternal, apical, and subcostal acoustic windows. Study completion: The patient tolerated the procedure well. Transthoracic echocardiography. M-mode, complete 2D, complete spectral Doppler, and color Doppler. Patient status: Inpatient. CARDIAC ANATOMY LEFT VENTRICLE: The cavity size was mildly dilated. Wall thickness was normal. Systolic function was severely reduced. The estimated ejection fraction was in the range of 20% to 25%. Diffuse hypokinesis. Doppler parameters are consistent with abnormal left ventricular relaxation (grade 1 diastolic dysfunction). AORTIC VALVE: Trileaflet; normal thickness leaflets. Doppler: Transvalvular velocity was within the normal range. There was no stenosis. No regurgitation. Valve area: 1cm^2(VTI). Valve area: 0.88cm^2 (Vmax). Mean gradient: 5mm Hg (S). Peak gradient: 11mm Hg (S). AORTA: Aortic root: The aortic root was normal in size. MITRAL VALVE: Structurally normal valve. Doppler: Transvalvular velocity was within the normal range. There was no evidence for stenosis. Mild to moderate regurgitation. Peak gradient: 3mm Hg (D). LEFT ATRIUM: The atrium was mildly dilated. RIGHT VENTRICLE: The cavity size was normal. Wall thickness was normal. PULMONIC VALVE: Doppler: Transvalvular velocity was within the normal range. There was no evidence for stenosis. Mild regurgitation. TRICUSPID VALVE: Structurally normal valve. Doppler: Transvalvular velocity was within the normal range. Mild regurgitation. PULMONARY ARTERY: The main pulmonary artery was normal-sized. Systolic pressure was moderately increased. RIGHT ATRIUM: The atrium was normal in size. PERICARDIUM: There was no pericardial effusion. SYSTEMIC VEINS: Inferior vena cava: The vessel was normal in size. Pleura: There was a left pleural effusion. BASIC MEASUREMENTS ADULT Normal Left ventricle LV internal dimension, ED, chordal level, *61.7 mm 43-52 PLAX LV internal dimension, ES, chordal level, *57 mm 23-38 PLAX Fractional shortening, chordal level, PLAX *8 % >29 LV posterior wall thickness, ED 10.7 mm IVS/LVPW ratio, ED 0.82 <1.3 Ventricular septum Septal thickness, ED 8.76 mm Right ventricle RV internal dimension, ED, PLAX 28.2 mm 19-38 BASIC MEASUREMENTS ADULT Normal Aorta Root diameter, ED 34 mm 20-37 Left atrium Anterior-posterior dimension, ES *47 mm 19-40 LA/aortic root ratio 1.38 DOPPLER MEASUREMENTS ADULT Normal Main pulmonary artery Pressure, S *59 mm Hg =30 Aortic valve Peak velocity, S 165 cm/s Mean velocity, S 107 cm/s VTI, S 27.1 cm Mean gradient, S 5 mm Hg Peak gradient, S 11 mm Hg Valve area, VTI 1 cm^2 Valve area, Vmax 0.88 cm^2 Mitral valve Peak E-wave velocity 80 cm/s Peak A-wave velocity 50.3 cm/s Peak gradient, D 3 mm Hg Peak E/A ratio 1.6 Tricuspid valve Regurgitant peak velocity 350 cm/s Peak RV-RA gradient, S 49 mm Hg Maximal regurgitant velocity 350 cm/s Systemic veins Estimated CVP 10 mm Hg Right ventricle RV pressure, S *59 mm Hg <30 LEGEND: Mean values are shown as u=mean value. Asterisk (*) heller values outside specified normal range. Prepared and signed by Ashish Lenz [id number]
--- NOTE | 2016-12-13 16:21 | HHI.PR ---
Subjective Remarks The pt feels better. Has been ambulating. Talking in full sentences. No chest pain. Sleeping well. Urine output is good with Lasix. Discussed with nursing. Objective Vitals Vital Signs Date Time Temp Pulse Resp B/P Pulse Ox O2 Delivery O2 Flow Rate FiO2 12/13/16 16:06 98.0 76 18 107/61 98 12/13/16 12:35 97.7 63 19 101/55 97 12/13/16 08:08 97.8 64 19 118/57 95 12/13/16 07:43 73 12/13/16 05:34 98.0 63 19 112/60 12/13/16 01:18 98.0 65 19 110/55 97 12/12/16 20:00 62 12/12/16 19:48 98.1 68 20 110/60 96 12/12/16 17:07 97.5 67 19 116/55 99 I/O 12/12/16 12/12/16 12/12/16 12/13/16 12/13/16 12/13/16 07:00 15:00 23:00 07:00 15:00 23:00 Output Total 400 ml Balance -400 ml Output Urine Total 400 ml Result Diagram: 12/13/16 0659 12/13/16 0659 Imaging Last Impressions Chest X-Ray 12/12/16 1142 Signed Impressions: Service Date/Time: Monday, December 12, 2016 11:50 - CONCLUSION: 1. Cardiomegaly and findings of vascular congestion without overt failure. Ruslan Haque MD Objective Remarks GENERAL: This is a well-nourished, well-developed patient, in no apparent distress. SKIN: No rashes, ecchymoses or lesions. Cool and dry. HEAD: Atraumatic. Normocephalic. No temporal or scalp tenderness. EYES: Pupils equal round and reactive. Extraocular motions intact. No scleral icterus. No injection or drainage. ENT: Nose without bleeding, purulent drainage or septal hematoma. Throat without erythema, tonsillar hypertrophy or exudate. Uvula midline. Airway patent. NECK: Trachea midline. No JVD or lymphadenopathy. Supple, nontender, no meningeal signs. CARDIOVASCULAR: Regular rate and rhythm without murmurs, gallops, or rubs. RESPIRATORY: Diminished bases, fine crackles bilaterally. GASTROINTESTINAL: Abdomen soft, non-tender, nondistended. No hepato-splenomegaly , or palpable masses. No guarding. MUSCULOSKELETAL: Extremities without clubbing, cyanosis, no LE edema. No joint tenderness, effusion, or edema noted. NEUROLOGICAL: Awake and alert. Oriented 3. Motor and sensory grossly within normal limits. No focal neuro deficit. Faint speech, hoarseness. PSYCH: Mood and affect appropriate. Medications and IVs Current Medications Medications (Trade) Dose Ordered Sig/Sonya Route Start Time Stop Time Status Last Admin (NS Flush) 2 ml UNSCH PRN FLUSH 12/12/16 15:00 (NS Flush) 2 ml BID FLUSH 12/12/16 21:00 12/13/16 08:41 (Tylenol) 650 mg Q4H PRN PO 12/12/16 15:00 (Zofran Inj) 4 mg Q6H PRN IVP 12/12/16 15:00 (Milk Of Magnesia Liq) 30 ml Q12H PRN PO 12/12/16 15:00 (Narcan Inj) 0.4 mg UNSCH PRN IV 12/12/16 15:00 (Ecotrin Ec) 81 mg DAILY PO 12/13/16 09:00 12/13/16 08:41 (Lipitor) 80 mg HS PO 12/12/16 21:00 12/12/16 22:00 (Plavix) 75 mg DAILY PO 12/13/16 09:00 12/13/16 08:42 (Vasotec) 20 mg BID PO 12/12/16 21:00 (Lopressor) 12.5 mg Q12HR PO 12/12/16 21:00 12/13/16 08:42 (Aldactone) 25 mg DAILY PO 12/13/16 09:00 12/13/16 08:41 (Flomax) 0.4 mg HS PO 12/12/16 21:00 12/12/16 22:00 (Protonix) 20 mg DAILY PO 12/13/16 09:00 12/13/16 08:42 (Lasix Inj) 40 mg BID@09,18 IV PUSH 12/12/16 18:00 12/13/16 08:41 (K-Lyte Cl Eff) 50 meq ONCE ONCE PO 12/13/16 16:30 12/13/16 16:31 UNV A/P Problem List: (1) Elevated troponin ICD Code: R79.89 Status: Acute (2) S/P aortic valve replacement ICD Code: Z95.2 Status: Acute (3) SOB (shortness of breath) ICD Code: R06.02 Status: Acute (4) Acute exacerbation of CHF (congestive heart failure) ICD Code: I50.9 Status: Acute Assessment and Plan Patient is a 86-year-old white male with primary medical history of severe aortic stenosis and CAD, HTN, HLD, CHF who came in to the hospital with complaints of increasing shortness of breath that started last night. Previously seen at the hospital last November 03, 2016 for cardiac catheter which showed severe aortic stenosis with occlusion RCA would write the right and left- to-right collaterals done by Dr. Boyer. Patient was sent to [facility] in [facility] for aortic valve replacement that was done 11/14/16. Status post aortic valve replacement Acute exacerbation congestive heart failure - BNP 918. Chest x-ray showed cardiomegaly and findings of vascular congestion without overt failure. Echo with EF 20-25%. - Lasix 40 mg IVP given in the ED. Continue to diurese patient. Continue spironolactone 25 mg, enalapril 20 mg - Continue O2 nasal cannula. - Monitor BMP - Patient has been followed by Dr. Boyer prior to AVR in [facility]. Consult cardiology. - obtain d/c summary from [facility]. - consider AICD placement per cardiology in light of low EF. - continue cardiac regimen including ASA, Plavix, statin. Elevated troponin - EKG reviewed sinus rhythm with right bundle branch block - Follow serial troponin. Peaked at 0.19. - cardiology following. - telemetry. HTN - continue enalapril 20 mg twice a day, metoprolol 12.5 mg every 12 hours, spironolactone 25 mg - Monitor BP trend Hypokalemia S/t Lasix. - replete and monitor. DVT prop SCDs GI prop/GERD pantoprazole 20mg Discharge Planning Awaiting clinical improvement. Problem Qualifiers (1) Acute exacerbation of CHF (congestive heart failure): Qualified Code: I50.43 - Acute on chronic combined systolic and diastolic congestive heart failure Gary Cabrera DO Dec 13, 2016 16:21
[2016-12-13] MEDS ORDERED: POTASSIUM CHLORIDE 25 MEQ EFFERVESCENT TAB PO ONE (16:30)
[2016-12-13] MEDS: ATORVASTATIN 80 MG TAB PO SCH (20:42)
[2016-12-13] MEDS: TAMSULOSIN HCL 0.4 MG CAP PO SCH (20:42)
[2016-12-14 01:18] VITALS: BP 105/65; PULSE 85; RESP 19; TEMP 98
[2016-12-14 04:11] VITALS: BP 107/65; PULSE 76; RESP 19; TEMP 98.3; O2SAT 97
[2016-12-14 06:00] LABS: HEMATOCRIT 36.1 % (39.0-51.0); MEAN CELL VOLUME 85.8 FL (80.0-100.0); MEAN CORPUSCULAR HEMOGLOBIN 29.1 PG (27.0-34.0); MEAN CORPUSCULAR HGB CONC 33.9 % (32.0-36.0); PLATELET COUNT 100 TH/MM3 (150-450); RED BLOOD COUNT 4.21 MIL/MM3 (4.50-5.90); RED CELL DISTRIBUTION WIDTH 15.3 % (11.6-17.2); REVIEW FLAG FINAL; WHITE BLOOD COUNT 5.4 TH/MM3 (4.0-11.0)
--- NOTE | 2016-12-14 06:12 | RADRPT ---
EXAM DATE/TIME: 12/14/2016 05:25 [facility] COMPARISON: CHEST SINGLE AP, December 12, 2016, 11:50. INDICATIONS : Evaluate for CHF. Pt short of breath. MEDICAL HISTORY : SURGICAL HISTORY : Atrial valve replacement, Stent placement ENCOUNTER: Subsequent ACUITY: 2 days PAIN SCORE: 7/10 LOCATION: Bilateral chest FINDINGS: Mild bibasilar consolidation again seen in both sides are slightly worse. A small right pleural effus ion appears to be developing as well. No pneumothorax. Mild cardiomegaly is stable. CONCLUSION: Worsening bibasilar consolidation and small right pleural effusion. Mild cardiomegaly similar to befo re. Paul Lassiter MD on December 14, 2016 at 6:10 Board Certified Radiologist. This report was verified electronically.
[2016-12-14 06:25] LABS: BICARBONATE 26.4 MEQ/L (21.0-32.0); MAGNESIUM 1.6 MG/DL (1.5-2.5); POTASSIUM 3.7 MEQ/L (3.5-5.1)
[2016-12-14 07:09] VITALS: PULSE 77
[2016-12-14 08:28] VITALS: BP 110/53; PULSE 77; RESP 18; TEMP 97.7; O2SAT 93
[2016-12-14] MEDS: SODIUM CHLORIDE 0.9% FLUSH 5 ML FLUSH FLUSH SCH (08:42)
[2016-12-14] MEDS: METOPROLOL TARTRATE 25 MG TAB PO SCH (08:43)
[2016-12-14] MEDS: ASPIRIN EC 81 MG TABEC PO SCH (08:43)
[2016-12-14] MEDS: FUROSEMIDE 40 MG/4 ML VIAL IV PUSH SCH (08:43)
[2016-12-14] MEDS: SPIRONOLACTONE 25 MG TAB PO SCH (08:43)
[2016-12-14] MEDS: PANTOPRAZOLE SOD 20 MG DELAYED RELEASE TAB PO SCH (08:44)
[2016-12-14] MEDS: CLOPIDOGREL 75 MG TAB PO SCH (08:44)
[2016-12-14] MEDS: ENALAPRIL MALEATE 10 MG TAB PO SCH (08:52)
--- NOTE | 2016-12-14 08:54 | PD.CARD.PN ---
Subjective Subjective Remarks no complaints no sob Objective Medications Current Medications Medications (Trade) Dose Ordered Sig/Sonya Route Start Time Stop Time Status Last Admin (NS Flush) 2 ml UNSCH PRN FLUSH 12/12/16 15:00 12/13/16 17:51 (NS Flush) 2 ml BID FLUSH 12/12/16 21:00 12/13/16 20:42 (Tylenol) 650 mg Q4H PRN PO 12/12/16 15:00 (Zofran Inj) 4 mg Q6H PRN IVP 12/12/16 15:00 (Milk Of Magnesia Liq) 30 ml Q12H PRN PO 12/12/16 15:00 (Narcan Inj) 0.4 mg UNSCH PRN IV 12/12/16 15:00 (Ecotrin Ec) 81 mg DAILY PO 12/13/16 09:00 12/13/16 08:41 (Lipitor) 80 mg HS PO 12/12/16 21:00 12/13/16 20:42 (Plavix) 75 mg DAILY PO 12/13/16 09:00 12/13/16 08:42 (Vasotec) 20 mg BID PO 12/12/16 21:00 (Lopressor) 12.5 mg Q12HR PO 12/12/16 21:00 12/13/16 20:42 (Aldactone) 25 mg DAILY PO 12/13/16 09:00 12/13/16 08:41 (Flomax) 0.4 mg HS PO 12/12/16 21:00 12/13/16 20:42 (Protonix) 20 mg DAILY PO 12/13/16 09:00 12/13/16 08:42 (Lasix Inj) 40 mg BID@09,18 IV PUSH 12/12/16 18:00 12/13/16 17:50 Vital Signs / I&O Vital Signs Date Time Temp Pulse Resp B/P Pulse Ox O2 Delivery O2 Flow Rate FiO2 12/14/16 08:28 97.7 77 18 110/53 93 12/14/16 04:11 98.3 76 19 107/65 97 12/14/16 01:18 98.0 85 19 105/65 12/13/16 20:00 87 12/13/16 19:32 98.2 90 19 105/66 96 12/13/16 16:06 98.0 76 18 107/61 98 12/13/16 12:35 97.7 63 19 101/55 97 I/O 12/13/16 12/13/16 12/13/16 12/14/16 12/14/16 12/14/16 07:00 15:00 23:00 07:00 15:00 23:00 Intake Total 911 ml Output Total 400 ml 1075 ml Balance -400 ml -164 ml Intake Oral 911 ml Output Urine Total 400 ml 1075 ml Physical Exam GENERAL: Well-nourished, well-developed patient. SKIN: Warm and dry. HEAD: Normocephalic. EYES: No scleral icterus. No injection or drainage. NECK: Supple, trachea midline. No JVD or lymphadenopathy. CARDIOVASCULAR: Regular rate and rhythm 2/6 SABINA murmur, gallops, or rubs. RESPIRATORY: Breath sounds equal bilaterally. No accessory muscle use. GASTROINTESTINAL: Abdomen soft, non-tender, nondistended. EXTREMITIES: No cyanosis, or edema. NEUROLOGICAL: Awake, alert, and oriented x 3. Non-focal. Laboratory Laboratory Tests Test 12/14/16 05:20 White Blood Count 5.4 TH/MM3 Red Blood Count 4.21 MIL/MM3 Hemoglobin 12.2 GM/DL Hematocrit 36.1 % Mean Corpuscular Volume 85.8 FL Mean Corpuscular Hemoglobin 29.1 PG Mean Corpuscular Hemoglobin 33.9 % Concent Red Cell Distribution Width 15.3 % Platelet Count 100 TH/MM3 Mean Platelet Volume 9.1 FL Sodium Level 140 MEQ/L Potassium Level 3.7 MEQ/L Chloride Level 104 MEQ/L Carbon Dioxide Level 26.4 MEQ/L Anion Gap 10 MEQ/L Blood Urea Nitrogen 18 MG/DL Creatinine 0.80 MG/DL Estimat Glomerular Filtration 92 ML/MIN Rate Random Glucose 95 MG/DL Calcium Level 8.8 MG/DL Magnesium Level 1.6 MG/DL Assessment and Plan Problem List: (1) Acute exacerbation of CHF (congestive heart failure) Assessment and Plan: Chest pain and SOB free Cont diuresis Echo results reviewed no AI or PVL Cont aggressive medical management of CAD Encourage ambulation and incentive spirometry Stable from CV to d/c home. Cont Lasix PO at home. Schedule f/u with Dr. Boyer Sign off (2) Ischemic cardiomyopathy (3) S/P aortic valve replacement Problem Qualifiers (1) Acute exacerbation of CHF (congestive heart failure): Qualified Code: I50.43 - Acute on chronic combined systolic and diastolic congestive heart failure Shane Grajeda MD Dec 14, 2016 08:54
[2016-12-14 09:18] VITALS: O2SAT 96
[2016-12-14] MEDS ORDERED: POTA-163 PO (09:53)
[2016-12-14] MEDS ORDERED: FURO1TAB60 PO (09:53)
--- NOTE | 2016-12-14 09:53 | HHI.DCPOC ---
Discharge Care Plan Diagnosis: (1) Ischemic cardiomyopathy (2) S/P aortic valve replacement (3) Acute exacerbation of CHF (congestive heart failure) (4) Elevated troponin (5) SOB (shortness of breath) (6) Laryngitis Goals to Promote Your Health * To prevent worsening of your condition and complications * To maintain your health at the optimal level Directions to Meet Your Goals Take your medications as prescribed Follow your dietary instruction Follow activity as directed Keep your appointments as scheduled Take your immunizations and boosters as scheduled If your symptoms worsen call your PCP, if no PCP go to Urgent Care Center or Emergency Room Smoking is Dangerous to Your Health. Avoid second hand smoke Call the 24-hour hour crisis hotline for domestic abuse at Gary Cabrera DO Dec 14, 2016 09:53
[2016-12-14] MEDS ORDERED: POTASSIUM CHLORIDE 20 MEQ CONTROLLED RELEASE TAB PO ONE (10:00)
--- NOTE | 2016-12-14 10:02 | HHI.PR ---
Subjective Remarks The patient was feeling well and wanted to go home. He said he discussed with cardiology and will follow with his own car pre cooler as an outpatient. He denies any shortness of breath. Discussed with nursing. Objective Vitals Vital Signs Date Time Temp Pulse Resp B/P Pulse Ox O2 Delivery O2 Flow Rate FiO2 12/14/16 09:18 96 Nasal Cannula 21 12/14/16 08:28 97.7 77 18 110/53 93 12/14/16 04:11 98.3 76 19 107/65 97 12/14/16 01:18 98.0 85 19 105/65 12/13/16 20:00 87 12/13/16 19:32 98.2 90 19 105/66 96 12/13/16 16:06 98.0 76 18 107/61 98 12/13/16 12:35 97.7 63 19 101/55 97 I/O 12/13/16 12/13/16 12/13/16 12/14/16 12/14/16 12/14/16 07:00 15:00 23:00 07:00 15:00 23:00 Intake Total 911 ml Output Total 400 ml 1075 ml 125 ml Balance -400 ml -164 ml -125 ml Intake Oral 911 ml Output Urine Total 400 ml 1075 ml 125 ml Result Diagram: 12/14/1620 12/14/16 0520 Imaging Last Impressions Chest X-Ray 12/14/16 0600 Signed Impressions: Service Date/Time: Wednesday, December 14, 2016 05:25 - CONCLUSION: Worsening bibasilar consolidation and small right pleural effusion. Mild cardiomegaly similar to before. Paul Lassiter MD Objective Remarks GENERAL: This is a well-nourished, well-developed patient, in no apparent distress. SKIN: No rashes, ecchymoses or lesions. Cool and dry. HEAD: Atraumatic. Normocephalic. No temporal or scalp tenderness. EYES: Pupils equal round and reactive. Extraocular motions intact. No scleral icterus. No injection or drainage. ENT: Nose without bleeding, purulent drainage or septal hematoma. Throat without erythema, tonsillar hypertrophy or exudate. Uvula midline. Airway patent. NECK: Trachea midline. No JVD or lymphadenopathy. Supple, nontender, no meningeal signs. CARDIOVASCULAR: Regular rate and rhythm without murmurs, gallops, or rubs. RESPIRATORY: Diminished bases, fine crackles bilaterally. GASTROINTESTINAL: Abdomen soft, non-tender, nondistended. No hepato-splenomegaly , or palpable masses. No guarding. MUSCULOSKELETAL: Extremities without clubbing, cyanosis, no LE edema. No joint tenderness, effusion, or edema noted. NEUROLOGICAL: Awake and alert. Oriented 3. Motor and sensory grossly within normal limits. No focal neuro deficit. Faint speech, hoarseness. PSYCH: Mood and affect appropriate. Medications and IVs Current Medications Medications (Trade) Dose Ordered Sig/Sonya Route Start Time Stop Time Status Last Admin (NS Flush) 2 ml UNSCH PRN FLUSH 12/12/16 15:00 12/13/16 17:51 (NS Flush) 2 ml BID FLUSH 12/12/16 21:00 12/14/16 08:42 (Tylenol) 650 mg Q4H PRN PO 12/12/16 15:00 (Zofran Inj) 4 mg Q6H PRN IVP 12/12/16 15:00 (Milk Of Magnesia Liq) 30 ml Q12H PRN PO 12/12/16 15:00 (Narcan Inj) 0.4 mg UNSCH PRN IV 12/12/16 15:00 (Ecotrin Ec) 81 mg DAILY PO 12/13/16 09:00 12/14/16 08:43 (Lipitor) 80 mg HS PO 12/12/16 21:00 12/13/16 20:42 (Plavix) 75 mg DAILY PO 12/13/16 09:00 12/14/16 08:44 (Vasotec) 20 mg BID PO 12/12/16 21:00 (Lopressor) 12.5 mg Q12HR PO 12/12/16 21:00 12/14/16 08:43 (Aldactone) 25 mg DAILY PO 12/13/16 09:00 12/14/16 08:43 (Flomax) 0.4 mg HS PO 12/12/16 21:00 12/13/16 20:42 (Protonix) 20 mg DAILY PO 12/13/16 09:00 12/14/16 08:44 (Lasix Inj) 40 mg BID@09,18 IV PUSH 12/12/16 18:00 12/14/16 08:43 A/P Problem List: (1) Elevated troponin ICD Code: R79.89 Status: Acute (2) S/P aortic valve replacement ICD Code: Z95.2 Status: Acute (3) SOB (shortness of breath) ICD Code: R06.02 Status: Acute (4) Acute exacerbation of CHF (congestive heart failure) ICD Code: I50.9 Status: Acute Assessment and Plan Patient is a 86-year-old white male with primary medical history of severe aortic stenosis and CAD, HTN, HLD, CHF who came in to the hospital with complaints of increasing shortness of breath that started last night. Previously seen at the hospital last November 03, 2016 for cardiac catheter which showed severe aortic stenosis with occlusion RCA would write the right and left- to-right collaterals done by Dr. Boyer. Patient was sent to [facility] in [facility] for aortic valve replacement that was done 11/14/16. Status post aortic valve replacement Acute exacerbation congestive heart failure - BNP 918. Chest x-ray showed cardiomegaly and findings of vascular congestion without overt failure. Echo with EF 20-25%. - Lasix 40 mg IVP given in the ED. Continue to diurese patient. Continue spironolactone 25 mg, enalapril. Add Lasix PO on discharge. - Continue O2 nasal cannula. - Monitor BMP. - Patient has been followed by Dr. Boyer prior to AVR in [facility]. Consult cardiology. Cleared for discharge. - continue cardiac regimen including ASA, Plavix, statin. Elevated troponin - EKG reviewed sinus rhythm with right bundle branch block - Follow serial troponin. Peaked at 0.19. - cardiology following. - telemetry. HTN - continue enalapril 20 mg twice a day, metoprolol 12.5 mg every 12 hours, spironolactone 25 mg - Monitor BP trend. Well controlled. Hypokalemia S/t Lasix. - replete and monitor. D/c on KCl with Lasix. Follow BMP as an outpt. Hoarse voice The pt was exposed to cement dust last year and sustained a hoarse voice. - outpt follow up with ENT. DVT prop SCDs GI prop/GERD pantoprazole 20mg Discharge Planning D/c home. Problem Qualifiers (1) Acute exacerbation of CHF (congestive heart failure): Qualified Code: I50.43 - Acute on chronic combined systolic and diastolic congestive heart failure Sayess,Salvador. DO Dec 14, 2016 10:02
== END 2016-12-14 13:06 | disposition home or self-care (01) ==
LOC: NEPC 11:20 → NEDA 13:44 → NEPHCDU 16:55
PROVIDERS: ADMIT Hospitalist; ATTEND Hospitalist
DX: I50.43 Acute on chronic combined systolic (congestive) and diastolic (congestive) heart failure (principal); I25.5 Ischemic cardiomyopathy; I25.10 Atherosclerotic heart disease of native coronary artery without angina pectoris; I10 Essential (primary) hypertension; I35.0 Nonrheumatic aortic (valve) stenosis; I45.10 Unspecified right bundle-branch block; E78.5 Hyperlipidemia, unspecified; D64.9 Anemia, unspecified; E87.6 Hypokalemia; E78.00 Pure hypercholesterolemia, unspecified; R74.8 Abnormal levels of other serum enzymes; K21.9 Gastro-esophageal reflux disease without esophagitis; N40.0 Benign prostatic hyperplasia without lower urinary tract symptoms; Z95.2 Presence of prosthetic heart valve; Z95.5 Presence of coronary angioplasty implant and graft
CPT/HCPCS: 71010; 80048; 80053; 81001; 82550; 83735; 83880; 84484; 85025; 85027; 85610; 85730; 93005; 93306; 94620; 96374; 97161; 99285; G0378; G8987; G8988; J1940

== ENCOUNTER → 2017-01-14 | Outpatient (CLI) | payer OTHER ==
[~2017-01-14] MED LIST changes: -BACT2OIN TOPICAL; +FURO1TAB60 PO; +POTA-163 PO
--- NOTE | 2017-01-23 13:17 | RSPPFT ---
DATE OF PROCEDURE: 01/14/17 COMMENTS: VOLUMES DYNAMIC: FVC mildly reduced; FEV1 normal. STATIC: TLC mildly reduced; VTG and RV normal. FLOWS: FEV1% and FEF 25-75 super normal. DIFFUSION: Moderately reduced. FLOW VOLUME LOOP: Restrictive configuration. IMPRESSION: Mild restrictive ventilatory defect with a moderate reduction in diffusion and no significant improvement post-bronchodilator.
== END ==
LOC: HRSP 12:10
PROVIDERS: ATTEND Internal Medicine
DX: J44.9 Chronic obstructive pulmonary disease, unspecified (principal)
CPT/HCPCS: 94060; 94620; 94726; 94729

== ENCOUNTER 2018-05-17 13:10 | Observation (INO) ==
[2018-05-17 14:32] LABS: Baso % (Auto) 0.3 % (0.0-2.0); Eos % (Auto) 0.2 % (0.0-4.0); Hematocrit 39.3 % (39.0-51.0); Hemoglobin 13.3 gm/dL (13.0-17.0); Lymph # (Auto) 0.5 th/mm3 (1.0-4.8); Mean Corpuscular HGB Conc 33.8 % (32.0-36.0); Mean Corpuscular Hemoglobin 30.1 pg (27.0-34.0); Mean Corpuscular Volume 89.2 fL (80.0-100.0); Mono # (Auto) 0.4 th/mm3 (0.0-0.9); Mono % (Auto) 5.1 % (0.0-8.0); Neut # (Auto) 7.6 th/mm3 (1.8-7.7); Neut % (Auto) 88.4 % (16.0-70.0); Platelet Count 132 th/mm3 (150-450); Red Cell Distribution Width 14.2 % (11.6-17.2); White Blood Count 8.6 th/mm3 (4.0-11.0)
[2018-05-17 14:39] LABS: Activated Partial Thrombo Time 25.7 sec (24.3-30.1)
[2018-05-17 14:44] LABS: Anion Gap 11 meq/L (5-15); Blood Urea Nitrogen 23 mg/dL (7-18); Calcium 9.7 mg/dL (8.5-10.1); Carbon Dioxide 26.8 meq/L (21.0-32.0); Chloride 103 meq/L (98-107); Glomerular Filtration Rate 56 mL/min (>89); Glucose,Random 115 mg/dL (74-106); Magnesium 2.2 mg/dL (1.5-2.5); Potassium 4.6 meq/L (3.5-5.1); Sodium 141 meq/L (136-145)
[2018-05-17 14:59] LABS: Creatine Kinase 40 U/L (39-308)
--- NOTE | 2018-05-17 16:57 | ED ---
HPI General Chief complaint: Chest Pain Stated complaint: Chest Pain Time Seen by Provider: 05/17/18 16:32 History of Present Illness HPI narrative: Patient 87-year-old male presents emergency part chest pain in the center with some radiation to the left and right side of his chest. States it feels fairly tight on and off, worsens with exertion, no shortness of breath no dizziness no nausea. He does have a history of coronary artery disease and stents placed in 2015. States he has not had a stress test or cardiac catheterization since then. Denies any abdominal pain nausea vomiting diarrhea constipation. Denies any headache. States symptoms are currently mild, no alleviating or exacerbating factors identified, context and associated signs symptoms as above Related Data Home Medications Medication Instructions Recorded Confirmed Calcium 500 With D 1 cap/day PO DAILY 05/17/18 05/17/18 [employer] 1 ea/day PO DAILY 05/17/18 05/17/18 albuterol sulfate [Ventolin HFA] 1 puff INHALATION Q4-6H PRN 05/17/18 05/17/18 aspirin [Aspirin Low Dose] 81 mg PO DAILY 05/17/18 05/17/18 atorvastatin 10 mg PO HS 05/17/18 05/17/18 clopidogrel 75 mg PO DAILY 05/17/18 05/17/18 furosemide [Lasix] 40 mg PO DAILY 05/17/18 05/17/18 lisinopril 2.5 mg PO DAILY 05/17/18 05/17/18 metoprolol tartrate [Lopressor] 25 mg PO BID 05/17/18 05/17/18 omeprazole 20 mg PO DAILY 05/17/18 05/17/18 potassium chloride 20 mg PO DAILY 05/17/18 05/17/18 sulindac 200 mg PO BID 05/17/18 05/17/18 Allergies Allergy/AdvReac Type Severity Reaction Status Date / Time No Known Allergies Allergy Unverified 05/17/18 13:27 Review of Systems Except as stated in HPI: all other systems reviewed are negative [facility] Medical History Medical History External hemorrhoid (Acute) Surgical History Surgical History S/P AVR (Acute) Stented coronary artery (Acute) Social History Social History Substance History: No History of Abuse Second Hand Smoke Exposure: No Smoking Status: Former smoker How Often Do You Have a Drink Containing Alcohol: Monthly or less Recent Travel in [facility] within the Last 8 Weeks: No Recent Out of Country Travel within the Last 8 Weeks: No Immunization History Tetanus Immunization: <5 Years Hx Influenza Vaccine This Season: Yes Exam Narrative Exam Narrative: GENERAL: Well-developed well-nourished no obvious distress SKIN: Focused skin assessment warm/dry. HEAD: Atraumatic. Normocephalic. EYES: Pupils equal and round. No scleral icterus. No injection or drainage. ENT: No nasal bleeding or discharge. Mucous membranes pink and moist. NECK: Trachea midline. No JVD. CARDIOVASCULAR: Regular rate and rhythm. No murmur appreciated. RESPIRATORY: No accessory muscle use. Clear to auscultation. Breath sounds equal bilaterally. GASTROINTESTINAL: Abdomen soft, non-tender, nondistended. Hepatic and splenic margins not palpable. MUSCULOSKELETAL: No obvious deformities. No clubbing. No cyanosis. No edema. NEUROLOGICAL: Awake and alert. No obvious cranial nerve deficits. Motor grossly within normal limits. Normal speech. PSYCHIATRIC: Appropriate mood and affect; insight and judgment normal. Course Initial Documented Vital Signs Temperature 97.5 F L 05/17/18 13:20 Pulse Rate 56 L 05/17/18 13:20 Respiratory Rate 16 05/17/18 13:20 Blood Pressure 148/65 H 05/17/18 13:20 Pulse Oximetry 99 05/17/18 13:20 Last Documented Vital Signs Temperature 97.5 F L 05/17/18 13:20 Pulse Rate 61 05/17/18 19:18 Respiratory Rate 20 05/17/18 19:18 Blood Pressure 114/51 L 05/17/18 19:18 Pulse Oximetry 98 05/17/18 19:18 Medical Decision Making [facility] Narrative Medical decision making narrative: Patient room to the emergency department, appears very comfortable, does have risk factors and known coronary artery disease, initial EKG troponin negative. Discussed with the patient that this could be reflux, patient states he has had reflux in the past and this does not feel similar. I recommended that he be admission to the hospital for chest pain center observation and possible stress testing and he is agreeable. Aspirin was given, pain-free. Chest x-ray negative. Will be placed in chest pain center observation. Differential Diagnosis Differential Diagnosis: ACS, [place], pneumonia, GERD, reflux. Lab Data Result diagrams: 05/17/18 14:05 05/17/18 14:05 Lab Results 05/17/18 05/17/18 05/17/18 Range/Units 14:05 14:05 14:05 WBC 8.6 (4.0-11.0) th/mm3 RBC 4.40 L (4.50-5.90) mil/mm3 Hgb 13.3 (13.0-17.0) gm/dL Hct 39.3 (39.0-51.0) % MCV 89.2 (80.0-100.0) fL MCH 30.1 (27.0-34.0) pg MCHC 33.8 (32.0-36.0) % RDW 14.2 (11.6-17.2) % Plt Count 132 L (150-450) th/mm3 MPV 9.0 (7.0-11.0) fL Neut % (Auto) 88.4 H (16.0-70.0) % Lymph % (Auto) 6.0 L (9.0-44.0) % Crook % (Auto) 5.1 (0.0-8.0) % Eos % (Auto) 0.2 (0.0-4.0) % Baso % (Auto) 0.3 (0.0-2.0) % Neut # (Auto) 7.6 (1.8-7.7) th/mm3 Lymph # (Auto) 0.5 L (1.0-4.8) th/mm3 Crook # (Auto) 0.4 (0.0-0.9) th/mm3 Eos # (Auto) 0.0 (0.0-0.4) th/mm3 Baso # (Auto) 0.0 (0.0-0.2) th/mm3 WBC Differential . Differential Comment Auto diff final PT 10.0 (9.8-11.6) sec INR 1.0 Ratio APTT 25.7 (24.3-30.1) sec Sodium 141 (136-145) meq/L Potassium 4.6 (3.5-5.1) meq/L Chloride 103 (98-107) meq/L Carbon Dioxide 26.8 (21.0-32.0) meq/L Anion Gap 11 (5-15) meq/L BUN 23 H (7-18) mg/dL Creatinine 1.22 (0.60-1.30) mg/dL Estimated GFR 56 L (>89) mL/min Random Glucose 115 H (74-106) mg/dL Calcium 9.7 (8.5-10.1) mg/dL Magnesium 2.2 (1.5-2.5) mg/dL Total Creatine Kinase 40 (39-308) U/L Troponin I Less than 0.02 L (0.02-0.05) ng/mL Imaging Data Radiologist's impression: Chest X-Ray 05/17/18 13:28 CONCLUSION: No acute cardiopulmonary abnormality is identified. Discharge Plan Discharge Disposition Patient Disposition: 30 Still Patient Discharge Details Diagnosis: Chest pain Physicians Team ED Provider: Samir Garza Primary Care Provider: Rafael Rodriguez Attending Provider: Ruslan Josue Discharge Interventions Interventions: Vital Signs Last Done: 05/17/18 19:18 Status ED Status: Admitted Observation Patient
--- NOTE | 2018-05-17 17:13 | XR ---
EXAM DATE: 05/17/2018 4:24 PM EDT AGE/SEX: 87 years / Male INDICATIONS: Chest pains radiating into left arm. CLINICAL DATA: This is the patient's initial encounter. Patient reports that signs and symptoms have been present for 1 day and indicates a pain score of 8/10. MEDICAL/SURGICAL HISTORY: . Myocardial infarction. . Cardiac valve replacement. COMPARISON: POI, XR CHEST PA AND LAT, 04/20/2017. . FINDINGS: Frontal and lateral views of the chest demonstrate a normal size cardiac silhouette with calcificatio n of the aorta. There is an aortic valve replacement present. No pleural effusion, airspace consolida tion, or pneumothorax is identified. There are degenerative changes of the thoracic spine. CONCLUSION: No acute cardiopulmonary abnormality is identified. Electronically signed by: Paul Willson MD 05/17/2018 5:11 PM EDT
[2018-05-17 21:34] LABS: Creatine Kinase 34 U/L (39-308)
[2018-05-18 00:29] LABS: Creatine Kinase 33 U/L (39-308)
[2018-05-18 08:49] VITALS: RESP 20
[2018-05-18] MEDS ORDERED: Regadenoson Inj 0.4 MG/5 ML Syringe IV.PUSH ONE (10:35)
[2018-05-18] MEDS ORDERED: Metoprolol Tartrate 50 MG Tablet PO SCH (11:00)
[2018-05-18] MEDS ORDERED: Potassium Chloride 10 MEQ ER Capsule PO SCH (11:00)
--- NOTE | 2018-05-18 11:00 | P.HPCA ---
History of Present Illness Primary Care Physician: Rafael Rodriguez MD Chief Complaint: Chest pain History of Present Illness: This is an 87-year-old male with history of CAD status post stents as well as having aortic valve replacement [address] [facility] and continues to follow Dr. Boyer the presents to ED with complaint of chest discomfort that he points to the center of his chest indicate location. Began yesterday morning and lasted all day long with shortness of breath up until this morning. He was diaphoretic. Denies nausea. States it does not feel similar to symptoms when he needed stenting when he need his aortic valve replaced. Currently denies chest discomfort. Voices compliance with medications. - Diagnosis (1) Status post transcatheter aortic valve replacement (2) CAD (coronary artery disease) (3) History of heart artery stent (4) Hypertension (5) Hyperlipidemia (6) COPD (chronic obstructive pulmonary disease) (7) Chest pain Inpatient Certification: I certify that the inpatient services were ordered in accordance with Medicare regulations governing the order. This includes certification that hospital inpatient services are reasonable and necessary and in the case of services not specified as inpatient-only under 42 CFR 419.22(n), that they are appropriately provided as inpatient services in accordance to with the 2-midnight benchmark under 43 CFR 412.3(e) Review of Systems General: Patient denies fevers, chills, and recent travel. HEENT: Patient denies headache, sore throat, difficulty swallowing. Cardiovascular: Has the chest discomfort as mentioned above. Denies sensation of heart beating rapidly or irregularly. No syncope. He was diaphoretic. Respiratory: Denies shortness of breath or inspirational chest discomfort. Denies coughing wheezing or hemoptysis. GI: Patient denies nausea, vomiting, diarrhea, abdominal pain, bloody stools. Musculoskeletal: Patient denies joint pain or edema. Denies calf pain or edema. Neurovascular: Patient denies numbness, tingling, weakness in extremities. Denies headache. Endocrine: Denies polyuria and polydipsia. Hematologic: Denies easy bruising. Skin: Denies rash or itching. PMFSH - History History Provided By: Patient - Medical History Medical History: Medical History (Last Updated 05/17/18 @ 16:38 by Brigid Gonzalez) External hemorrhoid - Surgical History Surgical History: Surgical History (Last Updated 07/16/18 @ 16:38 by Brigid Sanchez S/P AVR Stented coronary artery - Tobacco History Second Hand Smoke Exposure: No Tobacco Use In Past 30 Days: No Smoking Status: Former smoker Tobacco Type: Cigarettes - Alcohol History How Often Do You Have a Drink Containing Alcohol: 2 to 4 times a month - Substance Use History Substance History: No History of Abuse - Travel History Recent Travel in the [place] Within the Last 8 Weeks: No Recent Travel Out of the Country Within the Last 8 Weeks: No - Immunization History Tetanus Immunization: <5 Years Hx Influenza Vaccine This Season: Yes Medications and Allergies Active Medications: Active Medications Atorvastatin Calcium (Lipitor) 10 mg PO HS FOR[facility]LY [facility], 1928–1983 Clopidogrel Bisulfate (Plavix) 75 mg PO DAILY NATALYA Furosemide (Lasix) 40 mg PO DAILY NATALYA Lisinopril (Prinivil) 2.5 mg PO DAILY NATALYA Metoprolol Tartrate (Lopressor) 25 mg PO BID NATALYA Pantoprazole Sodium (Protonix) 20 mg PO DAILY NATALYA Potassium Chloride (Kcl) 10 meq PO DAILY FOR[facility]LY [facility], 1928–1983 Sodium Chloride (Ns Flush) 2 ml IV.FLUSH BID FOR[facility]LY [facility], [facility]1983 Last Admin: 05/18/18 08:05 Dose: Not Given Sodium Chloride (Ns Flush) 2 ml IV.FLUSH PRN PRN PRN Reason: FLUSH AFTER USING IV ACCESS Allergies Allergy/AdvReac Type Severity Reaction Status Date / Time No Known Allergies Allergy Unverified 05/17/18 13:27 Home Medications Medication Instructions Recorded Confirmed Type Calcium 500 With D 1 cap/day PO DAILY 05/17/18 05/17/18 History One-[employer] 1 ea/day PO DAILY 05/17/18 05/17/18 History albuterol sulfate [Ventolin HFA] 1 puff INHALATION Q4-6H PRN 05/17/18 05/17/18 History aspirin [Aspirin Low Dose] 81 mg PO DAILY 05/17/18 05/17/18 History atorvastatin 10 mg PO HS 05/17/18 05/17/18 History clopidogrel 75 mg PO DAILY 05/17/18 05/17/18 History furosemide [Lasix] 40 mg PO DAILY 05/17/18 05/17/18 History lisinopril 2.5 mg PO DAILY 05/17/18 05/17/18 History metoprolol tartrate [Lopressor] 25 mg PO BID 05/17/18 05/17/18 History omeprazole 20 mg PO DAILY 05/17/18 05/17/18 History potassium chloride 20 mg PO DAILY 05/17/18 05/17/18 History sulindac 200 mg PO BID 05/17/18 05/17/18 History Exam Vital signs: Vital Signs 05/17/18 13:20 05/17/18 16:38 05/17/18 19:18 Temperature 97.5 F L Pulse Rate 56 L 60 61 Respiratory Rate 16 18 20 Blood Pressure 148/65 H 154/86 H 114/51 L Pulse Oximetry 99 97 98 05/17/18 21:16 05/17/18 21:30 05/17/18 22:00 Temperature 98.4 F Pulse Rate 68 59 L 59 L Respiratory Rate 16 Blood Pressure 126/56 L Pulse Oximetry 99 05/18/18 00:01 05/18/18 02:28 05/18/18 04:00 Temperature 98.3 F Pulse Rate 60 63 63 Respiratory Rate 16 Blood Pressure 123/53 L Pulse Oximetry 100 05/18/18 08:00 Temperature 98.2 F Pulse Rate 58 L Respiratory Rate 20 Blood Pressure 113/56 L Pulse Oximetry 97 Intake & Output 05/17/18 05/18/18 05/18/18 18:59 06:59 18:59 Intake Total 400 / 400 Balance 400 / 400 Weight 58.967 kg Intake: Oral 400 / 400 Other: # Voids 2 Date of Last Bowel Movement 05/17/18 Narrative: GENERAL: This is a well-nourished, well-developed patient, in no apparent distress. Patient speaks in clear complete sentences. Patient is pleasant. HEENT: Head is atraumatic and normocephalic. Neck is supple without lymphadenopathy and trachea is midline. No JVD or carotid bruits. CARDIOVASCULAR: Grade 2 systolic murmur left sternal border as well as right sternal border without radiation. Regular rate and rhythm without gallops or rubs. RESPIRATORY: Clear to auscultation. Breath sounds equal bilaterally. No wheezes , rales, or rhonchi. Chest wall is nontender. No use of accessory muscles. GASTROINTESTINAL: Abdomen is nontender, nondistended. Abdomen soft. No obvious pulsatile mass or bruit. No CVA tenderness. Strong femoral pulses bilaterally. Normal bowel sounds in all quadrants. MUSCULOSKELETAL: Patient is moving upper and lower extremities freely. No calf tenderness or edema, no Homans sign. Strong pulses in upper and lower extremities. NEUROLOGICAL: Patient is alert and oriented. Cranial nerves 2-12 are grossly intact. No focal deficits and speech is clear. SKIN: No rash and turgor is normal. Results 05/17/18 14:05 05/17/18 14:05 Cardiac Enzymes 05/17/18 05/17/18 05/17/18 Range/Units 14:05 20:23 23:35 Troponin I Less than 0.02 L Less than 0.02 L Less than 0.02 L (0.02-0.05) ng/mL Coagulation 05/17/18 Range/Units 14:05 PT 10.0 (9.8-11.6) sec APTT 25.7 (24.3-30.1) sec CBC 05/17/18 Range/Units 14:05 WBC 8.6 (4.0-11.0) th/mm3 RBC 4.40 L (4.50-5.90) mil/mm3 Hgb 13.3 (13.0-17.0) gm/dL Hct 39.3 (39.0-51.0) % Plt Count 132 L (150-450) th/mm3 Neut # (Auto) 7.6 (1.8-7.7) th/mm3 Lymph # (Auto) 0.5 L (1.0-4.8) th/mm3 [place] # (Auto) 0.4 (0.0-0.9) th/mm3 Eos # (Auto) 0.0 (0.0-0.4) th/mm3 Baso # (Auto) 0.0 (0.0-0.2) th/mm3 Comprehensive Metabolic Panel 05/17/18 Range/Units 14:05 Sodium 141 (136-145) meq/L Potassium 4.6 (3.5-5.1) meq/L Chloride 103 (98-107) meq/L Carbon Dioxide 26.8 (21.0-32.0) meq/L BUN 23 H (7-18) mg/dL Creatinine 1.22 (0.60-1.30) mg/dL Calcium 9.7 (8.5-10.1) mg/dL Intake and Output 05/17/18 05/18/18 05/18/18 22:59 06:59 14:59 Intake Total 400 / 400 Balance 400 / 400 Intake: Oral 400 / 400 Other: # Voids 2 Date of Last Bowel Movement 05/17/18 EKG interpretations - EKG EKG shows: sinus rhythm (EKGs are sinus rhythm without significant ST segment depressions or elevations.) Caprini VTE Risk Assessment Caprini VTE Risk Assessment: Moderate/High Risk (score >= 2) Caprini Risk Assessment Model: Point Value = 1 Point Value = 2 Point Value = 3 Point Value = 5 Age 41-60 Minor surgery BMI > 25 kg/m2 Swollen legs Varicose veins or History of unexplained or recurrent spontaneous Oral contraceptives or hormone replacement Sepsis (< 1 month) Serious lung disease, including pneumonia (< 1 month) Abnormal pulmonary function Acute myocardial infarction Congestive heart failure (< 1 month) History of inflammatory bowel disease Medical patient at bed rest Age 61-74 Arthroscopic surgery Major open surgery (> 45 min) Laparoscopic surgery (> 45 min) Malignancy Confined to bed (> 72 hours) Immobilizing plaster cast Central venous access Age >= 75 History of VTE Family history of VTE Factor V Leiden Prothrombin [id number] Lupus anticoagulant Anticardiolipin antibodies Elevated serum homocysteine Heparin-induced thrombocytopenia Other congenital or acquired thrombophilia Stroke (< 1 month) Elective arthroplasty Hip, pelvis, or leg fracture Acute spinal cord injury (< 1 month) Prophylaxis Regimen: Total Risk Factor Score Risk Level Prophylaxis Regimen 0-1 Low Early ambulation 2 Moderate Order ONE of the following: *Sequential Compression Device (SCD) *Heparin 5000 units SQ BID 3-4 Higher Order ONE of the following medications: *Heparin 5000 units SQ TID *Enoxaparin/Lovenox 40 mg SQ daily (WT < 150 kg, CrCl > 30 mL/min) *Enoxaparin/Lovenox 30 mg SQ daily (WT < 150 kg, CrCl > 10-29 mL/min) *Enoxaparin/Lovenox 30 mg SQ BID (WT < 150 kg, CrCl > 30 mL/min) AND/OR *Sequential Compression Device (SCD) 5 or more Highest Order ONE of the following medications: *Heparin 5000 units SQ TID (Preferred with Epidurals) *Enoxaparin/Lovenox 40 mg SQ daily (WT < 150 kg, CrCl > 30 mL/min) *Enoxaparin/Lovenox 30 mg SQ daily (WT < 150 kg, CrCl > 10-29 mL/min) *Enoxaparin/Lovenox 30 mg SQ BID (WT < 150 kg, CrCl > 30 mL/min) AND *Sequential Compression Device (SCD) Assessment and Plan - Assessment (1) Status post transcatheter aortic valve replacement Code(s): Z95.2 - Presence of prosthetic heart valve Status: Acute (2) CAD (coronary artery disease) Code(s): I25.10 - Atherosclerotic heart disease of [place] coronary artery without angina pectoris Status: Acute (3) History of heart artery stent Code(s): Z95.5 - Presence of coronary angioplasty implant and graft Status: Acute (4) Hypertension Code(s): I10 - Essential (primary) hypertension Status: Acute (5) Hyperlipidemia Code(s): E78.5 - Hyperlipidemia, unspecified Status: Acute (6) COPD (chronic obstructive pulmonary disease) Code(s): J44.9 - Chronic obstructive pulmonary disease, unspecified Status: Acute (7) Chest pain Code(s): R07.9 - Chest pain, unspecified Status: Acute - Plan * Chest pain: Patient has had serial cardiac enzymes and EKGs for ruling out purposes. He was seen by Dr. Mathew of cardiology in the chest pain center. I also discussed the patient with his communications electrician supervisor Dr. Jack. Patient at this time will undergo a Lexiscan and be discharge if stress test is nonischemic with instructions to follow-up with his communications electrician supervisor and PCP. Return to ED for interval issues. * History of CAD: Patient has had stents. This will be reassessed with stress testing. He should follow-up with his communications electrician supervisor. Resume medications. * Status post aortic valve replacement. * Hypertension: Continue medication. * Hyperlipidemia: Continue medication. * COPD: Have DuoNeb's as needed. Resume medication discharge. Patient is stable at this time. He is agreeable to this plan. H&P: Quality - VTE Deep Vein Thrombosis/Pulmonary Embolism Present on Admission: No (7) Chest pain Qualifiers: Chest pain type: unspecified Qualified Code(s): R07.9 - Chest pain, unspecified
--- NOTE | 2018-05-18 12:30 | NM ---
EXAM DATE: 05/18/2018 11:44 AM EDT AGE/SEX: 87 years / Male INDICATIONS:Angina. . Substernal chest pain radiating to left side. CLINICAL DATA: This is the patient's initial encounter. Patient reports that signs and symptoms have been present for 1 day and indicates a pain score of 5/10. MEDICAL/SURGICAL HISTORY: None. Coronary artery stent. COMPARISON: No prior exams available for comparison. DOSE: 8.5 mCi Tc 99m Myoview at rest 25.4 mCi [id number] at stress 0.4 mg Lexiscan STRESS SYMPTOMS: Dyspnea. EJECTION FRACTION: 33 % TECHNIQUE: The patient underwent pharmacologic stress with infusion of prescribed dose. Continuous ECG tracing was monitored during stress. Gated SPECT imaging was performed after stress and conventi onal SPECT imaging was performed at rest. The examination was performed on a SPECT/CT scanner, both attenuation and non-corrected datasets were reviewed. FINDINGS: Distribution: The maximum perfused segment at stress is in the anterior wall. Perfusion Study: There is a small focus of moderately diminished relative perfusion involving the a nterior wall and a slightly larger area of diminished perfusion involving the posterior basal and inf erior wall with extension to the cardiac apex. There is no definite redistribution. There is increase d right ventricular uptake Gated Study: Moderate left ventricular chamber enlargement and global hypokinesis. The ejection fra ction is calculated at 33%. RISK CATEGORY: High (>3% Annual Morality Rate) CONCLUSION: 1. Small to moderate-sized multi territory perfusion abnormalities without definite ischemia. 2. Moderate LV chamber dilatation and global hypokinesis. Electronically signed by: Paul Patterson MD 05/18/2018 12:28 PM EDT
[2018-05-18 13:10] VITALS: BP 135/59; PULSE 63; TEMP 97.5; O2SAT 99
--- NOTE | 2018-05-18 16:38 | TR ---
Date Performed: 05/18/2018 Time Performed: 10:37:38 DOCTOR: Renetta Mathew DRUG LIST: CLINICAL HISTORY: REASON FOR TEST: REASON FOR ENDING: OBSERVATION: CONCLUSION: Lexiscan stress test was performed under standard four minute protocol. [place]ion[place] e was injected one minute prior to ending the test. No electrocardiographic abormalities were present to suggest ischemia. Nuclear imaging and interpretation are pending. COMMENTS:
--- NOTE | 2018-05-18 16:43 | ECG ---
Date Performed: 05/18/2018 Time Performed: 01:43:16 PTAGE: 87 years EKG: Sinus rhythm RIGHT BUNDLE BRANCH BLOCK LEFT ANTERIOR FASCICULAR BLOCK ABNORMAL ECG Since PREVIOUS TRACING , no significant change noted PREVIOUS TRACIN05/17/2018 20.32 DOCTOR: Renetta Mathew Interpretating Date/Time 05/18/2018 16:42:04
--- NOTE | 2018-05-18 16:44 | ECG ---
Date Performed: 05/17/2018 Time Performed: 20:32:22 PTAGE: 87 years EKG: Sinus rhythm WITH FIRST DEGREE AV BLOCK RIGHT BUNDLE BRANCH BLOCK LEFT ANTERIOR FASCICULAR BLOCK ABNORMAL ECG Sin ce PREVIOUS TRACING , no significant change noted PREVIOUS TRACIN05/17/2018 13.58 DOCTOR: Renetta Mathew Interpretating Date/Time 05/18/2018 16:42:56
--- NOTE | 2018-05-18 16:44 | ECG ---
Date Performed: 05/17/2018 Time Performed: 13:58:30 PTAGE: 87 years EKG: SINUS BRADYCARDIA RIGHT BUNDLE BRANCH BLOCK LEFT ANTERIOR FASCICULAR BLOCK ABNORMAL ECG Sin ce PREVIOUS TRACING , no significant change noted PREVIOUS TRACIN12/12/2016 11.40 DOCTOR: Renetta Mathew Interpretating Date/Time 05/18/2018 16:44:01
[2018-05-19] MEDS ORDERED: Lisinopril 5 MG Tablet PO SCH (09:00)
[2018-05-19] MEDS ORDERED: Pantoprazole Sodium 20 MG DR Tablet PO SCH (09:00)
[2018-05-19] MEDS ORDERED: Furosemide 40 MG Tablet PO SCH (09:00)
== END 2018-05-18 15:16 | disposition home or self-care (01) ==
LOC: NEPC 13:10 → NEPFCDU 13:10 → NEDA 13:10 → NEPFCDU 20:48
PROVIDERS: ADMIT Internal Medicine Cardiovascular Disease; ATTEND Internal Medicine Cardiovascular Disease
DX: E78.5 Hyperlipidemia, unspecified; Z95.2 Presence of prosthetic heart valve; Z79.02 Long term (current) use of antithrombotics/antiplatelets; R07.89 Other chest pain; R61 Generalized hyperhidrosis; J44.9 Chronic obstructive pulmonary disease, unspecified; Z79.899 Other long term (current) drug therapy; Z95.5 Presence of coronary angioplasty implant and graft; Z79.82 Long term (current) use of aspirin; I10 Essential (primary) hypertension; I25.10 Atherosclerotic heart disease of native coronary artery without angina pectoris; Z87.891 Personal history of nicotine dependence